=== PATIENT | male | born 1990 | race American Indian/Alaskan Native ===

== ENCOUNTER 2018-01-02 02:29 | Emergency (ER) | payer SELFPAY ==
[2018-01-02 04:15] LABS: Basophils % (Auto) 0.3 % (0.0-1.8); Eosinophils % (Auto) 0.2 % (0.0-4.3); Hematocrit 39.3 % (35.5-45.6); Hemoglobin 13.7 gm/dl (11.8-15.2); Mean Corpuscular HGB Conc 35 % (32-34); Mean Corpuscular Hemoglobin 30 pg (28-32); Mean Corpuscular Volume 85 fl (84-94); Monocytes # (Auto) 0.8 K/mm3 (0.0-0.8); Monocytes % (Auto) 7.8 % (0.0-7.3); Platelet Count 193 K/mm3 (140-440); Red Blood Count 4.64 M/mm3 (3.65-5.03); Red Cell Distribution Width 13.7 % (13.2-15.2)
[2018-01-02 04:17] LABS: BUN/Creatinine Ratio 15; Blood Urea Nitrogen 21 mg/dL (9-20); Calcium 8.8 mg/dL (8.4-10.2); Hemolysis Index 8
[2018-01-02 05:52] LABS: Hyaline Casts,Urine 1 /LPF; Mucus,Urine 1+ /HPF
[2018-01-02 05:53] LABS: Benzodiazepines Screen,Urine PRESUMPTIVE NEGATIVE; Methadone Screen,Urine PRESUMPTIVE NEGATIVE; Opiate Screen,Urine PRESUMPTIVE NEGATIVE
[2018-01-02 05:59] LABS: Bilirubin,Urine NEG (Negative); Blood,Urine NEG (Negative); Color,Urine Yellow (Yellow); Urobilinogen,Urine < 2.0 mg/dL (<2.0)
[2018-01-02 06:08] LABS: Amphetamine Screen,Urine PRESUMPTIVE POSITIVE; Cannabinoid Screen,Urine PRESUMPTIVE POSITIVE; Cocaine Screen,Urine PRESUMPTIVE POSITIVE
[2018-01-02] MEDS ORDERED: BENADRYL PO ONE (09:47)
--- NOTE | 2018-01-02 10:17 | Emergency Department Report ---
ED General Adult HPI - General Chief complaint: Psych Stated complaint: BUDS IN EAR Time Seen by Provider: 01/02/18 09:47 Source: patient Mode of arrival: Ambulatory Limitations: No Limitations - History of Present Illness Initial comments: Patient feels that for the past week he's been bitten by insects. He is concerned that he has scabies. Patient has been taking his skin. He is concerned that he could have scabies. Denies SI, HI, AVH. Severity scale (0 -10): 0 - Related Data Previous Rx's Medication Instructions Recorded Last Taken Type Doxycycline [Vibramycin CAP] 100 mg PO Q12HR #14 capsule 07/09/16 Unknown Rx Hydroxyzine HCl [hydrOXYzine] 50 mg PO Q6HR #20 tablet 01/02/18 Unknown Rx Skin Emollient [Aquaphor] 1 gm TP BID #1 tube 01/02/18 Unknown Rx Allergies Allergy/AdvReac Type Severity Reaction Status Date / Time No Known Allergies Allergy Unverified 07/09/16 08:50 ED Review of Systems ROS: Stated complaint: BUDS IN EAR Other details as noted in HPI Constitutional: denies: chills, fever Eyes: denies: eye pain, eye discharge, vision change ENT: denies: ear pain, throat pain Respiratory: denies: cough, shortness of breath, wheezing Cardiovascular: denies: chest pain, palpitations Endocrine: no symptoms reported Gastrointestinal: denies: abdominal pain, nausea, diarrhea Genitourinary: denies: urgency, dysuria Musculoskeletal: denies: back pain, joint swelling, arthralgia Skin: rash. denies: lesions Neurological: denies: headache, weakness, paresthesias Psychiatric: denies: anxiety, depression, auditory hallucinations, visual hallucinations, homicidal thoughts, suicidal thoughts Hematological/Lymphatic: denies: easy bleeding, easy bruising ED Past Medical Hx - Past Medical History Previous Medical History?: No - Social History Smoking Status: Current Every Day Smoker Substance Use Type: Alcohol, Marijuana - Medications Home Medications: Home Medications Medication Instructions Recorded Confirmed Last Taken Type Doxycycline [Vibramycin CAP] 100 mg PO Q12HR #14 capsule 07/09/16 Unknown Rx Hydroxyzine HCl [hydrOXYzine] 50 mg PO Q6HR #20 tablet 01/02/18 Unknown Rx Skin Emollient [Aquaphor] 1 gm TP BID #1 tube 01/02/18 Unknown Rx ED Physical Exam - General Limitations: No Limitations General appearance: alert, in no apparent distress - Head Head exam: Present: atraumatic, normocephalic - Eye Eye exam: Present: normal appearance - ENT ENT exam: Present: mucous membranes moist - Neck Neck exam: Present: normal inspection - Respiratory Respiratory exam: Present: normal lung sounds bilaterally. Absent: respiratory distress - Cardiovascular Cardiovascular Exam: Present: regular rate, normal rhythm. Absent: systolic murmur, diastolic murmur, rubs, gallop - GI/Abdominal GI/Abdominal exam: Present: soft, normal bowel sounds - Rectal Rectal exam: Present: deferred - exam: Present: normal inspection, circumcision, other (left inguinal crease with skin breakdown, no evidence of super infection) - Extremities Exam Extremities exam: Present: normal inspection - Back Exam Back exam: Present: normal inspection - Neurological Exam Neurological exam: Present: alert, oriented X3 - Psychiatric Psychiatric exam: Present: normal affect, normal mood - Skin Skin exam: Present: warm, dry, normal color, other (has multiple excoriations all over his body. Nothing in the web spaces of his hands/feet. Pt has been picking his skin.). Absent: rash ED Course Vital Signs 01/02/18 01/02/18 01/02/18 03:17 03:37 06:48 Temperature 98.1 F 98.1 F Pulse Rate 102 H 89 77 Respiratory 18 18 Rate Blood Pressure 130/78 130/78 Blood Pressure 132/70 [Left] O2 Sat by Pulse 94 95 Oximetry 01/02/18 07:30 Temperature 98.4 F Pulse Rate 75 Respiratory 16 Rate Blood Pressure Blood Pressure 113/73 [Left] O2 Sat by Pulse 98 Oximetry ED Medical Decision Making - Lab Data Result diagrams: 01/02/18 03:46 01/02/18 03:46 - Medical Decision Making 27-year-old malewith past medical history of present the ER with concern for bug bites. No evidence of scabies on exam. I'm concerned patient could have bedbugs. No evidence of bugs in the room. Patient does have multiple lesions from excoriations. He also has skin breakdown in his left groin. He's been given a barrier cream for the left groin. I have instructed the patient to start taking Atarax for the itching. Urinalysis shows evidence of polysubstance abuse. Likely presentation related to drug use. Patient has been encouraged to stop taking street drugs see that will also help his symptoms. No indication for emergent psychiatric eval at this point time. Clear for discharge. - Differential Diagnosis polysubstance abuse, contact dermatitis, hives, suicidal ideation, psychosi Critical care attestation.: If time is entered above; I have spent that time in minutes in the direct care of this critically ill patient, excluding procedure time. ED Disposition Clinical Impression: Itching, Drug abuse Disposition: DC-01 TO HOME OR SELFCARE Is pt being admited?: No Does the pt Need Aspirin: No Condition: Stable Instructions: Polysubstance Abuse (ED), Itchy Skin (ED) Additional Instructions: Stop using street drugs and it will help with your itching. Start taking your prescription to help with the itching. You can also purchase benadryl cream to help with this too. Prescriptions: Hydroxyzine HCl [hydrOXYzine] 50 mg PO Q6HR #20 tablet Skin Emollient [Aquaphor] 1 gm TP BID #1 tube Referrals: VERONICA MCKEON MD [Primary Care Provider] - 3-5 Days
[2018-01-02 11:01] VITALS: BP 139/84
== END 2018-01-02 10:50 | disposition home or self-care (01) ==
LOC: ED 02:29
DX: L29.9 Pruritus, unspecified (principal); F17.200 Nicotine dependence, unspecified, uncomplicated; F12.10 Cannabis abuse, uncomplicated; F19.10 Other psychoactive substance abuse, uncomplicated; Z79.899 Other long term (current) drug therapy
CPT/HCPCS: 36415; 80048; 80307; 81001; 85025; 99284; G0480; 80320

== ENCOUNTER 2018-01-19 21:57 | Emergency (ER) | payer SELFPAY ==
[2018-01-20] MEDS ORDERED: MOTRIN PO ONE (00:23)
[2018-01-20] MEDS ORDERED: DUONEB *Not for PRN Use IH ONE (01:06)
--- NOTE | 2018-01-20 01:15 | Emergency Department Report ---
ED ENT HPI - General Chief complaint: Dental/Oral Stated complaint: BUGS Time Seen by Provider: 01/20/18 00:23 Source: patient Mode of arrival: Ambulatory Limitations: No Limitations - History of Present Illness Initial comments: This is a 27-year-old male nontoxic, well nourished in appearance, no acute signs of distress presents to the ED with c/o of right upper toothache 2 weeks. Patient denies following up with a dentist. Patient stated that pain radiates from his job to his right side of head. Patient otherwise denies any head trauma. Patient describes toothache as aching level of 8 out of 10. Patient denies any facial swelling. Patient denies any numbness, tingling, fever, chills, headache, stiff neck, abdominal pain, chest pain, shortness of breath. Patient stated allergiers to Benadryl. Patient denies any PMH. MD complaint: tooth pain -: week(s) (2) Location: tooth # 1 - pain Severity: mild Severity scale (0 -10): 8 Quality: aching Consistency: constant Improves with: none Worsens with: none Context- Dental: history of dental caries, poor dental care Associated Symptoms: gum swelling, toothache. denies: fever, cough, pain with swallowing, sore throat, tinnitus, hearing loss, discharge from ear, rhinorrhea - Related Data Previous Rx's Medication Instructions Recorded Last Taken Type Doxycycline [Vibramycin CAP] 100 mg PO Q12HR #14 capsule 07/09/16 Unknown Rx Hydroxyzine HCl [hydrOXYzine] 50 mg PO Q6HR #20 tablet 01/02/18 Unknown Rx Skin Emollient [Aquaphor] 1 gm TP BID #1 tube 01/02/18 Unknown Rx Amoxicillin/K Clav Tab [Augmentin 1 tab PO Q12HR #20 tab 01/20/18 Unknown Rx 875 mg] Chlorhexidine Mouthwash [Peridex] 15 ml MM BID #1 bottle 01/20/18 Unknown Rx Ibuprofen [Motrin] 600 mg PO Q8H PRN #30 tablet 01/20/18 Unknown Rx Allergies Allergy/AdvReac Type Severity Reaction Status Date / Time No Known Allergies Allergy Verified 01/19/18 22:07 ED Dental HPI - General Chief complaint: Dental/Oral Stated complaint: BUGS Time Seen by Provider: 01/20/18 00:23 Source: patient Mode of arrival: Ambulatory Limitations: No Limitations - Related Data Previous Rx's Medication Instructions Recorded Last Taken Type Doxycycline [Vibramycin CAP] 100 mg PO Q12HR #14 capsule 07/09/16 Unknown Rx Hydroxyzine HCl [hydrOXYzine] 50 mg PO Q6HR #20 tablet 01/02/18 Unknown Rx Skin Emollient [Aquaphor] 1 gm TP BID #1 tube 01/02/18 Unknown Rx Amoxicillin/K Clav Tab [Augmentin 1 tab PO Q12HR #20 tab 01/20/18 Unknown Rx 875 mg] Chlorhexidine Mouthwash [Peridex] 15 ml MM BID #1 bottle 01/20/18 Unknown Rx Ibuprofen [Motrin] 600 mg PO Q8H PRN #30 tablet 01/20/18 Unknown Rx Allergies Allergy/AdvReac Type Severity Reaction Status Date / Time No Known Allergies Allergy Verified 01/19/18 22:07 ED Review of Systems ROS: Stated complaint: BUGS Other details as noted in HPI Constitutional: denies: chills, fever Eyes: denies: eye pain, eye discharge, vision change ENT: dental pain. denies: ear pain, throat pain Respiratory: denies: cough, shortness of breath, wheezing Cardiovascular: denies: chest pain, palpitations Endocrine: no symptoms reported Gastrointestinal: denies: abdominal pain, nausea, diarrhea Genitourinary: denies: urgency, dysuria Musculoskeletal: denies: back pain, joint swelling, arthralgia Skin: denies: rash, lesions Neurological: denies: headache, weakness, paresthesias Psychiatric: denies: anxiety, depression Hematological/Lymphatic: denies: easy bleeding, easy bruising ED Past Medical Hx - Past Medical History Previous Medical History?: No - Surgical History Past Surgical History?: No - Social History Smoking Status: Never Smoker Substance Use Type: None - Medications Home Medications: Home Medications Medication Instructions Recorded Confirmed Last Taken Type Doxycycline [Vibramycin CAP] 100 mg PO Q12HR #14 capsule 07/09/16 Unknown Rx Hydroxyzine HCl [hydrOXYzine] 50 mg PO Q6HR #20 tablet 01/02/18 Unknown Rx Skin Emollient [Aquaphor] 1 gm TP BID #1 tube 01/02/18 Unknown Rx Amoxicillin/K Clav Tab [Augmentin 1 tab PO Q12HR #20 tab 01/20/18 Unknown Rx 875 mg] Chlorhexidine Mouthwash [Peridex] 15 ml MM BID #1 bottle 01/20/18 Unknown Rx Ibuprofen [Motrin] 600 mg PO Q8H PRN #30 tablet 01/20/18 Unknown Rx ED Physical Exam - General Limitations: No Limitations General appearance: alert, in no apparent distress - Head Head exam: Present: atraumatic, normocephalic - Eye Eye exam: Present: normal appearance Pupils: Present: normal accommodation - ENT ENT exam: Present: mucous membranes moist, TM's normal bilaterally, normal external ear exam - Expanded ENT Exam Expanded Ear exam: Present: normal external inspection Mouth exam: Present: normal external inspection, tongue normal. Absent: drooling, trismus, muffled voice, tongue elevation, laceration Teeth exam: Present: dental caries, fractured tooth #, dental tenderness #, gingival enlargement, other (No facial swelling. ) 1 - Dental Tenderness, Other (gingivitis) Throat exam: Positive: normal inspection, other ([place] midline. No abscess noted. ). Negative: tonsillar erythema, tonsillomegaly, tonsillar exudate, R peritonsillar mass, L peritonsillar mass - Neck Neck exam: Present: normal inspection, full ROM. Absent: tenderness, meningismus, lymphadenopathy - Respiratory Respiratory exam: Present: normal lung sounds bilaterally. Absent: respiratory distress, wheezes, rales, rhonchi, stridor, chest wall tenderness, accessory muscle use, decreased breath sounds, prolonged expiratory - Cardiovascular Cardiovascular Exam: Present: regular rate, normal rhythm, normal heart sounds. Absent: irregular rhythm, systolic murmur, diastolic murmur, rubs, gallop - GI/Abdominal GI/Abdominal exam: Present: soft, normal bowel sounds - Rectal Rectal exam: Present: deferred - Extremities Exam Extremities exam: Present: normal inspection - Back Exam Back exam: Present: normal inspection - Neurological Exam Neurological exam: Present: alert, oriented X3 - Psychiatric Psychiatric exam: Present: normal affect, normal mood - Skin Skin exam: Present: warm, dry, intact, normal color. Absent: rash ED Course Vital Signs 01/19/18 22:08 Temperature 99.9 F H Pulse Rate 96 H Respiratory 16 Rate Blood Pressure 132/81 O2 Sat by Pulse 96 Oximetry - Reevaluation(s) Reevaluation #1: 01/20/18 01:13 Patient is speaking in full sentences with no signs of distress noted. Critical care attestation.: If time is entered above; I have spent that time in minutes in the direct care of this critically ill patient, excluding procedure time. ED Disposition Clinical Impression: Dental caries, Gingivitis Disposition: TO HOME OR SELFCARE Is pt being admited?: No Does the pt Need Aspirin: No Condition: Stable Instructions: Dental Caries (ED), Gingivitis (ED), Amoxicillin/Clavulanate Potassium (By mouth), Ibuprofen (By mouth) Additional Instructions: Follow-up with a dentist in 3-5 days or if symptoms worsen and continue return to emergency room as soon as possible. Prescriptions: Amoxicillin/K Clav Tab [Augmentin 875 mg] 1 tab PO Q12HR #20 tab Chlorhexidine Mouthwash [Peridex] 15 ml MM BID #1 bottle Ibuprofen [Motrin] 600 mg PO Q8H PRN #30 tablet PRN Reason: Pain Referrals: PRIMARY CARE, [Primary Care Provider] - 3-5 Days TIESHA HERMOSILLO MD [Staff Physician] - 3-5 Days [facility] [Outside] - 3-5 Days
[2018-01-20 04:27] VITALS: BP 130/81
== END 2018-01-20 01:22 | disposition home or self-care (01) ==
LOC: ED 21:57
DX: K05.10 Chronic gingivitis, plaque induced (principal)
CPT/HCPCS: 99282

== ENCOUNTER → 2018-11-06 23:10 | Emergency (ER) | payer SELFPAY | END | disposition left against medical advice (07) | LOC: ED 23:10 ==

== ENCOUNTER 2021-04-03 14:59 | Emergency (ER) | payer SELFPAY ==
[2021-04-03 16:29] VITALS: BP 126/80
--- NOTE | 2021-04-03 18:43 | Emergency Department Report ---
Chief Complaint: Earache Stated Complaint: HEAD FACE EARS CHEST - HPI History of Present Illness: 30-year-old male patient presents to the emergency department with complaints of a "blood infection" and requesting a "full body MRI." Patient has been in retirement for the last two years. States he was treated with "a bunch of antibiotics for bacterial infection" and "wants a scan to prove there's a parasite." - ROS Review of Systems: GENERAL: Negative for fever. CARDIOVASCULAR: Negative for chest pain. PULMONARY: Negative for shortness of breath. GASTROINTESTINAL: Negative for abdominal pain. MUSCULOSKELETAL: Negative for back pain. NEUROLOGICAL: Negative for headache. INTEGUMENTARY: Negative for rash. - Exam Vital Signs: Vital Signs 04/03/21 16:27 Temperature 98.1 F Pulse Rate 75 Respiratory 18 Rate Blood Pressure 126/80 [Right] O2 Sat by Pulse 99 Oximetry Physical Exam: General: Awake and alert. No acute distress. Head: Atraumatic, normocephalic. Eyes: EOMI. Pupils are equal and round. Normal sclera and conjunctiva. ENT: Oral mucosa is moist. Normal pharyngeal exam. Normal otoscopic exam Neck: Supple. No lymphadenopathy. Pulmonary: No respiratory distress. Clear to auscultation bilaterally. Cardiac: Regular rate and rhythm. Pulses are palpable and equal bilaterally. No lower extremity cyanosis or edema. Skin: Warm and dry. No rashes. Abdomen: Soft, non-tender, non-protuberant. No guarding, rigidity, or rebound. Bowel sounds are normal. No organomegaly or masses noted. Back: Normal alignment. No CVA tenderness. Extremities: Symmetrical. Full range of motion intact. Neurological: Alert and oriented, appropriately interactive, no focal deficits. Psych: Cooperative. Appropriate mood and affect. Speech is evenly metered. Thoug hts are logically construed. MSE screening note: Focused history and physical exam performed. Due to findings the following was ordered: ED Medical Decision Making - Medical Decision Making Patient presents to emergency department with vague chronic complaints, requesting antibiotics and MRI's. He is afebrile, hemodynamically stable, without clinical evidence to suggest bacterial infection. Patient asked how much it would cost to have a "full body MRI" performed. Attempted to explain to the patient that an emergent MRI is not necessary however he angrily walked out of the examination room in the middle of the consultation. BILLING/CODING: This patient encounter does not represent a certified medical emergency. ED Disposition for MSE Clinical Impression: Encounter for medical screening examination Disposition: ELOPED Is pt being admited?: No Does the pt Need Aspirin: No Condition: Undetermined Instructions: Medical Screening Exam Time of Disposition: 18:43
== END 2021-04-03 18:43 | disposition left against medical advice (07) ==
LOC: ED 14:59
DX: Z13.9 Encounter for screening, unspecified (principal)
CPT/HCPCS: 99281

== ENCOUNTER 2021-04-07 10:08 | Emergency (ER) | payer SELFPAY ==
--- NOTE | 2021-04-07 10:49 | XRay Report ---
CHEST PA AND LATERAL VIEWS INDICATION: Chest Pain. COMPARISON: None. FINDINGS: Support devices: None. Heart: Within normal limits. Lungs/Pleura: No acute pulmonary or pleural findings. IMPRESSION: 1. No acute findings. Signer Name: Ilia Hill MD Signed: 04/07/2021 10:45 AM Workstation Name: [id number]
[2021-04-07 11:07] LABS: Basophils % (Auto) 0.4 % (0.0-1.8); Eosinophils % (Auto) 0.3 % (0.0-4.3); Hematocrit 38.8 % (35.5-45.6); Hemoglobin 13.5 gm/dl (11.8-15.2); Lymphocytes # (Auto) 1.2 K/mm3 (1.2-5.4); Lymphocytes % (Auto) 16.5 % (13.4-35.0); Mean Corpuscular HGB Conc 35 % (32-34); Mean Corpuscular Volume 87 fl (84-94); Monocytes # (Auto) 0.7 K/mm3 (0.0-0.8); Monocytes % (Auto) 9.2 % (0.0-7.3); Platelet Count 153 K/mm3 (140-440); Red Blood Count 4.46 M/mm3 (3.65-5.03); Red Cell Distribution Width 13.7 % (13.2-15.2)
[2021-04-07 11:28] LABS: BUN/Creatinine Ratio 12; Blood Urea Nitrogen 11 mg/dL (9-20); Calcium 9.5 mg/dL (8.4-10.2); Hemolysis Index 5
--- NOTE | 2021-04-07 13:01 | Emergency Department Report ---
ED General Adult HPI - General Chief complaint: Chest Pain Stated complaint: CHEST PAIN Time Seen by Provider: 04/07/21 12:40 Source: patient Mode of arrival: Ambulatory Limitations: No Limitations - History of Present Illness Initial comments: The patient presents to the emergency department with a chief complaint of chest pain that started at 6 AM this morning. Patient states the pain was sharp in nature without radiation. Patient states he also got dizzy with the chest pain. Patient states the chest pain has significantly improved since the time of onset but is still present. Patient did not tells me he began to have chest pain after using ICE(illicit drug). Patient states the dizziness has resolved, he denies abdominal pain, or headache. -: Sudden Location: chest Radiation: non-radiation Severity scale (0 -10): 2 Quality: sharp Consistency: constant Improves with: none Worsens with: none Associated Symptoms: denies other symptoms Treatments Prior to Arrival: none - Related Data Previous Rx's Medication Instructions Recorded Last Taken Type DOXYCYCLINE Hyclate [Vibramycin 100 mg PO Q12HR #14 capsule 07/09/16 Unknown Rx CAP] Hydroxyzine HCl [hydrOXYzine] 50 mg PO Q6HR #20 tablet 01/02/18 Unknown Rx Skin Emollient [Aquaphor] 1 gm TP BID #1 tube 01/02/18 Unknown Rx Amoxicillin/K Clav Tab [Augmentin 1 tab PO Q12HR #20 tab 01/20/18 Unknown Rx 875 mg] Chlorhexidine Mouthwash [Peridex] 15 ml MM BID #1 bottle 01/20/18 Unknown Rx Ibuprofen [Motrin] 600 mg PO Q8H PRN #30 tablet 01/20/18 Unknown Rx Ibuprofen [Motrin] 800 mg PO Q8HR PRN #30 tablet 04/07/21 Unknown Rx Allergies Allergy/AdvReac Type Severity Reaction Status Date / Time No Known Allergies Allergy Verified 01/19/18 22:07 ED Review of Systems ROS: Stated complaint: CHEST PAIN Other details as noted in HPI Comment: All other systems reviewed and negative Constitutional: denies: chills, fever Eyes: denies: eye pain, eye discharge, vision change ENT: denies: ear pain, throat pain Respiratory: denies: cough, shortness of breath, wheezing Cardiovascular: chest pain. denies: palpitations Endocrine: no symptoms reported Gastrointestinal: denies: abdominal pain, nausea, diarrhea Genitourinary: denies: urgency, dysuria Musculoskeletal: denies: back pain, joint swelling, arthralgia Skin: denies: rash, lesions Neurological: denies: headache, weakness, paresthesias Psychiatric: denies: anxiety, depression Hematological/Lymphatic: denies: easy bleeding, easy bruising ED Past Medical Hx - Past Medical History Previous Medical History?: No - Surgical History Past Surgical History?: No - Social History Smoking Status: Never Smoker Substance Use Type: None - Medications Home Medications: Home Medications Medication Instructions Recorded Confirmed Last Taken Type DOXYCYCLINE Hyclate [Vibramycin 100 mg PO Q12HR #14 capsule 07/09/16 Unknown Rx CAP] Hydroxyzine HCl [hydrOXYzine] 50 mg PO Q6HR #20 tablet 01/02/18 Unknown Rx Skin Emollient [Aquaphor] 1 gm TP BID #1 tube 01/02/18 Unknown Rx Amoxicillin/K Clav Tab [Augmentin 1 tab PO Q12HR #20 tab 01/20/18 Unknown Rx 875 mg] Chlorhexidine Mouthwash [Peridex] 15 ml MM BID #1 bottle 01/20/18 Unknown Rx Ibuprofen [Motrin] 600 mg PO Q8H PRN #30 tablet 01/20/18 Unknown Rx Ibuprofen [Motrin] 800 mg PO Q8HR PRN #30 tablet 04/07/21 Unknown Rx ED Physical Exam - General Limitations: No Limitations General appearance: alert, in no apparent distress - Head Head exam: Present: atraumatic, normocephalic - Eye Eye exam: Present: normal appearance - ENT ENT exam: Present: mucous membranes moist - Neck Neck exam: Present: normal inspection - Respiratory Respiratory exam: Present: normal lung sounds bilaterally. Absent: respiratory distress - Cardiovascular Cardiovascular Exam: Present: regular rate, normal rhythm. Absent: systolic murmur, diastolic murmur, rubs, gallop - GI/Abdominal GI/Abdominal exam: Present: soft, normal bowel sounds. Absent: distended, tenderness - Rectal Rectal exam: Present: deferred - Extremities Exam Extremities exam: Present: normal inspection - Back Exam Back exam: Present: normal inspection - Neurological Exam Neurological exam: Present: alert, oriented X3, CN II-XII intact. Absent: motor sensory deficit - Psychiatric Psychiatric exam: Present: normal affect, normal mood - Skin Skin exam: Present: warm, dry, intact, normal color. Absent: rash ED Course Vital Signs 04/07/21 10:28 Temperature 98.6 F Pulse Rate 79 Respiratory 16 Rate Blood Pressure 145/93 [Left] ED Medical Decision Making - Lab Data Result diagrams: 04/07/21 10:41 04/07/21 10:41 Lab Results 04/07/21 04/07/21 Range/Units 10:41 10:41 WBC 7.5 (4.5-11.0) K/mm3 RBC 4.46 (3.65-5.03) M/mm3 Hgb 13.5 (11.8-15.2) gm/dl Hct 38.8 (35.5-45.6) % MCV 87 (84-94) fl MCH 30 (28-32) pg MCHC 35 H (32-34) % RDW 13.7 (13.2-15.2) % Plt Count 153 (140-440) K/mm3 Lymph % (Auto) 16.5 (13.4-35.0) % [place] % (Auto) 9.2 H (0.0-7.3) % Eos % (Auto) 0.3 (0.0-4.3) % Baso % (Auto) 0.4 (0.0-1.8) % Lymph # (Auto) 1.2 (1.2-5.4) K/mm3 [place] # (Auto) 0.7 (0.0-0.8) K/mm3 Eos # (Auto) 0.0 (0.0-0.4) K/mm3 Baso # (Auto) 0.0 (0.0-0.1) K/mm3 Seg Neutrophils % 73.6 H (40.0-70.0) % Seg Neutrophils # 5.5 (1.8-7.7) K/mm3 Sodium 140 (137-145) mmol/L Potassium 3.6 (3.6-5.0) mmol/L Chloride 99.0 (98-107) mmol/L Carbon Dioxide 25 (22-30) mmol/L Anion Gap 20 mmol/L BUN 11 (9-20) mg/dL Creatinine 0.9 (0.8-1.3) mg/dL Estimated GFR > 60 ml/min BUN/Creatinine Ratio 12 % Glucose 84 (75-100) mg/dL Calcium 9.5 (8.4-10.2) mg/dL Troponin T < 0.010 (0.00-0.029) ng/mL - EKG Data -: EKG Interpreted by Me EKG shows normal: sinus rhythm Rate: tachycardia - Radiology Data Radiology results: report reviewed - Medical Decision Making Discussed results with patient Also discussed importance of not using illicit drugs Critical care attestation.: If time is entered above; I have spent that time in minutes in the direct care of this critically ill patient, excluding procedure time. ED Disposition Clinical Impression: Nonspecific chest pain Disposition: DC- TO HOME OR SELFCARE Is pt being admited?: No Does the pt Need Aspirin: No Condition: Stable Instructions: Nonspecific Chest Pain, Adult Additional Instructions: return if worse Referrals: ROSALIO MAYERS MD [Staff Physician] - 3-5 Days Time of Disposition: 12:59 Heart Score - HEART Score History: Slightly suspicious EKG: Normal Age: < 45 Risk factors: No known risk factors Troponin: < normal limit HEART Score: 0 - EKG Read Time Time EKG Completed: 00:00 EKG Read Time: 00:00 - Critical Actions Critical Actions: 0-3 pts:0.9-1.7%risk of adverse cardiac event.Candidate for discharge
[2021-04-07 13:06] VITALS: BP 150/97
== END 2021-04-07 13:29 | disposition home or self-care (01) ==
LOC: ED 10:08
DX: R07.89 Other chest pain (principal); R42 Dizziness and giddiness; Z79.899 Other long term (current) drug therapy
CPT/HCPCS: 36415; 71046; 80048; 84484; 85025; 93005; 99283

== ENCOUNTER 2021-04-11 22:19 | Emergency (ER) | payer SELFPAY | END 2021-04-11 23:00 | disposition left against medical advice (07) | LOC: ED 22:19 | DX: R07.9 Chest pain, unspecified (principal); Z53.21 Procedure and treatment not carried out due to patient leaving prior to being seen by health care provider ==

== ENCOUNTER 2021-04-12 16:42 | Emergency (ER) | payer SELFPAY | END 2021-04-12 17:30 | disposition left against medical advice (07) | LOC: ED 16:42 | DX: R55 Syncope and collapse (principal); Z53.21 Procedure and treatment not carried out due to patient leaving prior to being seen by health care provider ==

== ENCOUNTER 2021-04-13 01:35 | Emergency (ER) | payer SELFPAY ==
[2021-04-13 03:59] VITALS: BP 106/76
== END 2021-04-13 05:30 | disposition left against medical advice (07) ==
LOC: ED 01:35
DX: B99.9 Unspecified infectious disease (principal); Z53.21 Procedure and treatment not carried out due to patient leaving prior to being seen by health care provider

== ENCOUNTER 2021-04-18 01:50 | Emergency (ER) | payer SELFPAY ==
[2021-04-18] MEDS ORDERED: ACETAMINOPHEN 325 MG TAB PO ONE (10:13)
--- NOTE | 2021-04-18 10:47 | XRay Report ---
CHEST 2 VIEWS INDICATION / CLINICAL INFORMATION: chest pain. COMPARISON: 04/07/2021 FINDINGS: SUPPORT DEVICES: None. HEART / MEDIASTINUM: No significant abnormality. LUNGS / PLEURA: No significant pulmonary or pleural abnormality. No pneumothorax. ADDITIONAL FINDINGS: No significant additional findings. IMPRESSION: 1. No acute findings. No interval change. Signer Name: Rebecca Yin MD Signed: 04/18/2021 10:42 AM Workstation Name: [id number]
[2021-04-18 11:02] LABS: Basophils % (Auto) 0.4 % (0.0-1.8); Eosinophils % (Auto) 0.3 % (0.0-4.3); Hematocrit 40.1 % (35.5-45.6); Hemoglobin 13.8 gm/dl (11.8-15.2); Lymphocytes # (Auto) 1.2 K/mm3 (1.2-5.4); Lymphocytes % (Auto) 18.5 % (13.4-35.0); Mean Corpuscular HGB Conc 35 % (32-34); Mean Corpuscular Volume 87 fl (84-94); Monocytes # (Auto) 0.4 K/mm3 (0.0-0.8); Monocytes % (Auto) 6.5 % (0.0-7.3); Platelet Count 207 K/mm3 (140-440); Red Blood Count 4.61 M/mm3 (3.65-5.03); Red Cell Distribution Width 14.1 % (13.2-15.2)
[2021-04-18 11:12] LABS: Alanine Aminotransferase 149 units/L (7-56); Blood Urea Nitrogen 8 mg/dL (9-20); Calcium 10.2 mg/dL (8.4-10.2); Hemolysis Index 3
[2021-04-18 11:17] LABS: BUN/Creatinine Ratio 11
--- NOTE | 2021-04-18 11:48 | Emergency Department Report ---
ED General Adult HPI - General Chief complaint: Anxiety Stated complaint: CHEST PAIN Time Seen by Provider: 04/18/21 09:53 Source: patient Mode of arrival: Ambulatory Limitations: No Limitations - History of Present Illness Initial comments: 30-year-old -Pak[place] male patient with a history of bipolar and schizophrenia presents with complaints of anxiety and chest pain starting last night. He states his symptoms began after he used meth. He denies any SI/HI or hallucinations. He reports feeling woozy and admits to a mild headache that he rates as he was 4/10 in severity. He denies any nausea/vomiting, abdominal pain, vision changes, difficulty with speech/ambulation, or head trauma. Patient reports he has not been taking his Wellbutrin for the past month and is not currently following with a PCP or psychiatrist Severity scale (0 -10): 10 - Related Data Previous Rx's Medication Instructions Recorded Last Taken Type DOXYCYCLINE Hyclate [Vibramycin 100 mg PO Q12HR #14 capsule 07/09/16 Unknown Rx CAP] Hydroxyzine HCl [hydrOXYzine] 50 mg PO Q6HR #20 tablet 01/02/18 Unknown Rx Skin Emollient [Aquaphor] 1 gm TP BID #1 tube 01/02/18 Unknown Rx Amoxicillin/K Clav Tab [Augmentin 1 tab PO Q12HR #20 tab 01/20/18 Unknown Rx 875 mg] Chlorhexidine Mouthwash [Peridex] 15 ml MM BID #1 bottle 01/20/18 Unknown Rx Ibuprofen [Motrin] 600 mg PO Q8H PRN #30 tablet 01/20/18 Unknown Rx Ibuprofen [Motrin] 800 mg PO Q8HR PRN #30 tablet 04/07/21 Unknown Rx buPROPion HCl [Wellbutrin Sr] 200 mg PO BID 30 Days #60 04/18/21 Unknown Rx tab.er.12h Allergies Allergy/AdvReac Type Severity Reaction Status Date / Time No Known Allergies Allergy Verified 04/13/21 03:52 ED Review of Systems ROS: Stated complaint: CHEST PAIN Other details as noted in HPI Constitutional: denies: chills, diaphoresis, fever, malaise, weakness Respiratory: denies: cough, shortness of breath Cardiovascular: chest pain Gastrointestinal: denies: abdominal pain, nausea, vomiting Neurological: denies: headache ED Past Medical Hx - Past Medical History Previous Medical History?: Yes Hx Pulmonary Embolism: Yes (Bipolar disoder, depression) - Surgical History Past Surgical History?: No - Social History Smoking Status: Current Every Day Smoker Substance Use Type: Marijuana - Medications Home Medications: Home Medications Medication Instructions Recorded Confirmed Last Taken Type DOXYCYCLINE Hyclate [Vibramycin 100 mg PO Q12HR #14 capsule 07/09/16 Unknown Rx CAP] Hydroxyzine HCl [hydrOXYzine] 50 mg PO Q6HR #20 tablet 01/02/18 Unknown Rx Skin Emollient [Aquaphor] 1 gm TP BID #1 tube 01/02/18 Unknown Rx Amoxicillin/K Clav Tab [Augmentin 1 tab PO Q12HR #20 tab 01/20/18 Unknown Rx 875 mg] Chlorhexidine Mouthwash [Peridex] 15 ml MM BID #1 bottle 01/20/18 Unknown Rx Ibuprofen [Motrin] 600 mg PO Q8H PRN #30 tablet 01/20/18 Unknown Rx Ibuprofen [Motrin] 800 mg PO Q8HR PRN #30 tablet 04/07/21 Unknown Rx buPROPion HCl [Wellbutrin Sr] 200 mg PO BID 30 Days #60 04/18/21 Unknown Rx tab.er.12h ED Physical Exam - General Limitations: No Limitations General appearance: alert, in no apparent distress - Head Head exam: Present: atraumatic, normocephalic - Eye Eye exam: Present: normal appearance. Absent: scleral icterus - Respiratory Respiratory exam: Present: normal lung sounds bilaterally. Absent: respiratory distress - Cardiovascular Cardiovascular Exam: Present: regular rate - Neurological Exam Neurological exam: Present: alert, oriented X3, normal gait - Psychiatric Psychiatric exam: Present: normal affect, normal mood. Absent: depressed, agitated, anxious, flat affect, homicidal ideation, suicidal ideation - Skin Skin exam: Present: warm, dry, intact, normal color. Absent: rash, cyanosis, diaphoretic ED Course Vital Signs 04/18/21 04/18/21 03:03 12:54 Temperature 98 F Pulse Rate 90 78 Respiratory 19 16 Rate Blood Pressure 143/80 128/86 [Right] O2 Sat by Pulse 100 95 Oximetry ED Medical Decision Making - Lab Data Result diagrams: 04/18/21 10:36 04/18/21 10:36 Lab Results 04/18/21 04/18/21 04/18/21 Range/Units 10:36 10:36 11:51 WBC 6.2 (4.5-11.0) K/mm3 RBC 4.61 (3.65-5.03) M/mm3 Hgb 13.8 (11.8-15.2) gm/dl Hct 40.1 (35.5-45.6) % MCV 87 (84-94) fl MCH 30 (28-32) pg MCHC 35 H (32-34) % RDW 14.1 (13.2-15.2) % Plt Count 207 (140-440) K/mm3 Lymph % (Auto) 18.5 (13.4-35.0) % [place] % (Auto) 6.5 (0.0-7.3) % Eos % (Auto) 0.3 (0.0-4.3) % Baso % (Auto) 0.4 (0.0-1.8) % Lymph # (Auto) 1.2 (1.2-5.4) K/mm3 [place] # (Auto) 0.4 (0.0-0.8) K/mm3 Eos # (Auto) 0.0 (0.0-0.4) K/mm3 Baso # (Auto) 0.0 (0.0-0.1) K/mm3 Seg Neutrophils % 74.3 H (40.0-70.0) % Seg Neutrophils # 4.6 (1.8-7.7) K/mm3 Sodium 137 (137-145) mmol/L Potassium 4.1 (3.6-5.0) mmol/L Chloride 98.0 (98-107) mmol/L Carbon Dioxide 29 (22-30) mmol/L Anion Gap 14 mmol/L BUN 8 L (9-20) mg/dL Creatinine 0.7 L (0.8-1.3) mg/dL Estimated GFR > 60 ml/min BUN/Creatinine Ratio 11 % Glucose 97 (75-100) mg/dL Calcium 10.2 (8.4-10.2) mg/dL Total Bilirubin 0.50 (0.1-1.2) mg/dL AST 44 H (5-40) units/L ALT 149 H (7-56) units/L Alkaline Phosphatase 99 (35-129) units/L Troponin T < 0.010 (0.00-0.029) ng/mL Total Protein 7.3 (6.3-8.2) g/dL Albumin 5.0 (3.9-5) g/dL Albumin/Globulin Ratio 2.2 % Urine Color Colorless (Yellow) Urine Turbidity Clear (Clear) Urine pH 7.0 (5.0-7.0) Ur Specific [place] 1.001 L (1.003-1.030) Urine Protein <15 mg/dl (Negative) mg/dL Urine Glucose (UA) Neg (Negative) mg/dL Urine Ketones Neg (Negative) mg/dL Urine Blood Neg (Negative) Urine Nitrite Neg (Negative) Urine Bilirubin Neg (Negative) Urine Urobilinogen < 2.0 (<2.0) mg/dL Ur Leukocyte Esterase Neg (Negative) Urine WBC (Auto) < 1.0 (0.0-6.0) /HPF Urine RBC (Auto) < 1.0 (0.0-6.0) /HPF U Epithel Cells (Auto) < 1.0 (0-13.0) /HPF Urine Opiates Screen Urine Methadone Screen Ur Barbiturates Screen Ur Phencyclidine Scrn Ur Amphetamines Screen U Benzodiazepines Scrn U Marijuana (THC) Screen 04/18/21 Range/Units 11:51 WBC (4.5-11.0) K/mm3 RBC (3.65-5.03) M/mm3 Hgb (11.8-15.2) gm/dl Hct (35.5-45.6) % MCV (84-94) fl MCH (28-32) pg MCHC (32-34) % RDW (13.2-15.2) % Plt Count (140-440) K/mm3 Lymph % (Auto) (13.4-35.0) % [place] % (Auto) (0.0-7.3) % Eos % (Auto) (0.0-4.3) % Baso % (Auto) (0.0-1.8) % Lymph # (Auto) (1.2-5.4) K/mm3 [place] # (Auto) (0.0-0.8) K/mm3 Eos # (Auto) (0.0-0.4) K/mm3 Baso # (Auto) (0.0-0.1) K/mm3 Seg Neutrophils % (40.0-70.0) % Seg Neutrophils # (1.8-7.7) K/mm3 Sodium (137-145) mmol/L Potassium (3.6-5.0) mmol/L Chloride (98-107) mmol/L Carbon Dioxide (22-30) mmol/L Anion Gap mmol/L BUN (9-20) mg/dL Creatinine (0.8-1.3) mg/dL Estimated GFR ml/min BUN/Creatinine Ratio % Glucose (75-100) mg/dL Calcium (8.4-10.2) mg/dL Total Bilirubin (0.1-1.2) mg/dL AST (5-40) units/L ALT (7-56) units/L Alkaline Phosphatase (35-129) units/L Troponin T (0.00-0.029) ng/mL Total Protein (6.3-8.2) g/dL Albumin (3.9-5) g/dL Albumin/Globulin Ratio % Urine Color (Yellow) Urine Turbidity (Clear) Urine pH (5.0-7.0) Ur Specific [place] (1.003-1.030) Urine Protein (Negative) mg/dL Urine Glucose (UA) (Negative) mg/dL Urine Ketones (Negative) mg/dL Urine Blood (Negative) Urine Nitrite (Negative) Urine Bilirubin (Negative) Urine Urobilinogen (<2.0) mg/dL Ur Leukocyte Esterase (Negative) Urine WBC (Auto) (0.0-6.0) /HPF Urine RBC (Auto) (0.0-6.0) /HPF U Epithel Cells (Auto) (0-13.0) /HPF Urine Opiates Screen Negative Urine Methadone Screen Negative Ur Barbiturates Screen Negative Ur Phencyclidine Scrn Negative Ur Amphetamines Screen Negative U Benzodiazepines Scrn Negative U Marijuana (THC) Screen Negative - Radiology Data Radiology results: report reviewed CHEST 2 VIEWS INDICATION / CLINICAL INFORMATION: chest pain. COMPARISON: 04/07/2021 FINDINGS: SUPPORT DEVICES: None. HEART / MEDIASTINUM: No significant abnormality. LUNGS / PLEURA: No significant pulmonary or pleural abnormality. No pneumothorax. ADDITIONAL FINDINGS: No significant additional findings. IMPRESSION: 1. No acute findings. No interval change. - Medical Decision Making 30-year-old -Pak[place] male patient with a history of bipolar and schizophrenia presents with complaints of anxiety and chest pain starting last night. He states his symptoms began after he used meth. He denies any SI/HI or hallucinations. He reports feeling woozy and admits to a mild headache that he rates as he was 4/10 in severity. He denies any nausea/vomiting, abdominal pain, vision changes, difficulty with speech/ambulation, or head trauma. Patient reports he has not been taking his Wellbutrin for the past month and is not currently following with a PCP or psychiatrist Drug screen is positive for cocaine. CBC is within normal limits. CMP shows mildly elevated liver enzymes, however patient denies abdominal pain, vomiting, history of liver disease, and no jaundice/icterus is noted on exam. Recommend patient follows up with PCP for further evaluation of liver enzymes. His vitals remain normal, he is well-appearing, he is stable for discharge home. Strict return precautions were discussed in detail patient verbalized understanding. Critical care attestation.: If time is entered above; I have spent that time in minutes in the direct care of this critically ill patient, excluding procedure time. ED Disposition Clinical Impression: Abnormal liver enzymes, Methamphetamine abuse Disposition: TO HOME OR SELFCARE Is pt being admited?: No Condition: Stable Instructions: Liver Function Tests Prescriptions: buPROPion HCl [Wellbutrin Sr] 200 mg PO BID 30 Days #60 tab.er.12h Referrals: DRE ISSA MD [Primary Care Provider] - 2-3 Days
[2021-04-18 12:18] LABS: Bilirubin,Urine NEG (Negative); Blood,Urine NEG (Negative); Color,Urine Colorless (Yellow); Protein,Urine <15 mg/dL mg/dL (Negative); Urobilinogen,Urine < 2.0 mg/dL (<2.0); WBC,Urine < 1.0 /HPF (0.0-6.0)
[2021-04-18 12:25] LABS: RBC,Urine < 1.0 /HPF (0.0-6.0)
[2021-04-18 12:27] LABS: Amphetamine Screen,Urine Negative; Benzodiazepines Screen,Urine Negative; Cannabinoid Screen,Urine Negative; Methadone Screen,Urine Negative; Opiate Screen,Urine Negative
[2021-04-18] MEDS ORDERED: diphenhydrAMINE 25 MG/10 ML ORAL LIQUID PO ONE (12:46)
[2021-04-18] MEDS ORDERED: HYDROcodone/ACETAMINOPHEN 5-325 MG TAB PO ONE (12:53)
[2021-04-18] MEDS ORDERED: IBUPROFEN 800 MG TAB PO STA (12:53)
[2021-04-18] MEDS ORDERED: TETANUS,DIPH,PERTUSS(ACELL) VACCINE 0.5 ML SYRINGE IM ONE (12:54)
[2021-04-18] MEDS ORDERED: LIDOCAINE (1%) 10 MG/1 ML VIAL 20 ML MDV INFILTRATI ONE (12:54)
[2021-04-18 12:55] VITALS: BP 128/86
[2021-04-18 13:01] LABS: Cocaine Screen,Urine Positive
--- NOTE | 2021-04-20 10:38 | Electrocardiograph Report ---
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
== END 2021-04-18 12:56 | disposition home or self-care (01) ==
LOC: ED 01:50
DX: R94.5 Abnormal results of liver function studies (principal); F15.10 Other stimulant abuse, uncomplicated; F31.9 Bipolar disorder, unspecified; F17.200 Nicotine dependence, unspecified, uncomplicated; F12.10 Cannabis abuse, uncomplicated
CPT/HCPCS: 36415; 71046; 80053; 80307; 81001; 84484; 85025; 93005; 99284

== ENCOUNTER 2021-04-24 07:50 | Emergency (ER) | payer SELFPAY ==
[2021-04-24 08:03] VITALS: BP 147/89
[2021-04-24] MEDS ORDERED: ASPIRIN 325 MG TAB PO ONE (08:09)
--- NOTE | 2021-04-24 08:53 | XRay Report ---
XR chest routine 2V INDICATION / CLINICAL INFORMATION: cp. COMPARISON: 04/18/2021 FINDINGS: SUPPORT DEVICES: None. HEART /PULMONARY VASCULATURE: No significant abnormality. LUNGS / PLEURA: No significant pulmonary or pleural abnormality. No pneumothorax. ADDITIONAL FINDINGS: No significant additional findings. IMPRESSION: 1. No acute findings. Signer Name: Atif Yoo MD Signed: 04/24/2021 8:49 AM Workstation Name: [id number]
--- NOTE | 2021-04-24 09:38 | Emergency Department Report ---
ED General Adult HPI - General Chief complaint: Chest Pain Stated complaint: CP/HEAD PAIN Time Seen by Provider: 04/24/21 08:46 Source: patient Mode of arrival: Ambulatory Limitations: No Limitations - History of Present Illness Initial comments: This is a pleasant 30-year-old male who presents to the emergency department the chief complaint of right-sided chest pain that has been ongoing for the past 4 to 5 days. He reports the pain is aggravated when he presses on his chest. He denies any injuries. He denies any pleuritic pain or shortness of breath. He has a past medical history of hypertension but is not currently on any medications. He denies any other prescription drugs, allergies to medications or any previous surgeries. He denies any recent immobilization, hospitalization or travel. He denies any lower extremity edema or pain. He does report he smokes marijuana but denies tobacco use, methamphetamines or cocaine or any other illicit drug use. He denies alcohol use recently. He denies any associated fevers, chills, night sweats, headache, dizziness, blurry vision, nausea, vomiting, diarrhea, shortness of breath, weakness or any other associated symptoms. He denies any known sick contacts. Severity scale (0 -10): 8 - Related Data Previous Rx's Medication Instructions Recorded Last Taken Type DOXYCYCLINE Hyclate [Vibramycin 100 mg PO Q12HR #14 capsule 07/09/16 Unknown Rx CAP] Hydroxyzine HCl [hydrOXYzine] 50 mg PO Q6HR #20 tablet 01/02/18 Unknown Rx Skin Emollient [Aquaphor] 1 gm TP BID #1 tube 01/02/18 Unknown Rx Amoxicillin/K Clav Tab [Augmentin 1 tab PO Q12HR #20 tab 01/20/18 Unknown Rx 875 mg] Chlorhexidine Mouthwash [Peridex] 15 ml MM BID #1 bottle 01/20/18 Unknown Rx Ibuprofen [Motrin] 600 mg PO Q8H PRN #30 tablet 01/20/18 Unknown Rx Ibuprofen [Motrin] 800 mg PO Q8HR PRN #30 tablet 04/07/21 Unknown Rx buPROPion HCl [Wellbutrin Sr] 200 mg PO BID 30 Days #60 04/18/21 Unknown Rx tab.er.12h Naproxen 500 mg PO BID #20 tablet 04/24/21 Unknown Rx Allergies Allergy/AdvReac Type Severity Reaction Status Date / Time No Known Allergies Allergy Verified 04/13/21 03:52 ED Review of Systems ROS: Stated complaint: CP/HEAD PAIN Other details as noted in HPI Comment: All other systems reviewed and negative Constitutional: denies: chills, fever Eyes: denies: eye pain, eye discharge, vision change ENT: denies: ear pain, throat pain Respiratory: denies: cough, shortness of breath, wheezing Cardiovascular: as per HPI, chest pain. denies: palpitations Endocrine: no symptoms reported Gastrointestinal: denies: abdominal pain, nausea, diarrhea Genitourinary: denies: urgency, dysuria Musculoskeletal: denies: back pain, joint swelling, arthralgia Skin: denies: rash, lesions Neurological: denies: headache, weakness, paresthesias Psychiatric: denies: anxiety, depression Hematological/Lymphatic: denies: easy bleeding, easy bruising ED Past Medical Hx - Past Medical History Previous Medical History?: Yes Hx Hypertension: Yes (Not taken since in prison 2 wks ago) Hx Pulmonary Embolism: Yes (Bipolar disoder, depression) - Surgical History Past Surgical History?: No - Social History Smoking Status: Current Every Day Smoker Substance Use Type: Marijuana - Medications Home Medications: Home Medications Medication Instructions Recorded Confirmed Last Taken Type DOXYCYCLINE Hyclate [Vibramycin 100 mg PO Q12HR #14 capsule 07/09/16 Unknown Rx CAP] Hydroxyzine HCl [hydrOXYzine] 50 mg PO Q6HR #20 tablet 01/02/18 Unknown Rx Skin Emollient [Aquaphor] 1 gm TP BID #1 tube 01/02/18 Unknown Rx Amoxicillin/K Clav Tab [Augmentin 1 tab PO Q12HR #20 tab 01/20/18 Unknown Rx 875 mg] Chlorhexidine Mouthwash [Peridex] 15 ml MM BID #1 bottle 01/20/18 Unknown Rx Ibuprofen [Motrin] 600 mg PO Q8H PRN #30 tablet 01/20/18 Unknown Rx Ibuprofen [Motrin] 800 mg PO Q8HR PRN #30 tablet 04/07/21 Unknown Rx buPROPion HCl [Wellbutrin Sr] 200 mg PO BID 30 Days #60 04/18/21 Unknown Rx tab.er.12h Naproxen 500 mg PO BID #20 tablet 04/24/21 Unknown Rx ED Physical Exam - General Limitations: No Limitations General appearance: alert, in no apparent distress - Head Head exam: Present: atraumatic, normocephalic - Eye Eye exam: Present: normal appearance, PERRL, EOMI Pupils: Present: normal accommodation - ENT ENT exam: Present: normal exam, normal orophraynx, mucous membranes moist - Neck Neck exam: Present: normal inspection, full ROM. Absent: tenderness, meningismus - Respiratory Respiratory exam: Present: normal lung sounds bilaterally, chest wall tenderness (Tenderness to the right side of the chest wall at the border of the lower sternum. No deformity.). Absent: respiratory distress, wheezes, rales, rhonchi, stridor - Cardiovascular Cardiovascular Exam: Present: regular rate, normal rhythm, normal heart sounds. Absent: systolic murmur, diastolic murmur, rubs, gallop - GI/Abdominal GI/Abdominal exam: Present: soft, normal bowel sounds. Absent: distended, tenderness, guarding, rebound, rigid - Rectal Rectal exam: Present: deferred - exam: Present: normal inspection - Extremities Exam Extremities exam: Present: normal inspection. Absent: calf tenderness (No posterior calf tenderness, negative Homans' sign bilaterally.) - Back Exam Back exam: Present: normal inspection, full ROM. Absent: tenderness, CVA tenderness (R), CVA tenderness (L) - Neurological Exam Neurological exam: Present: alert, oriented X3, CN II-XII intact, normal gait - Psychiatric Psychiatric exam: Present: normal affect, normal mood - Skin Skin exam: Present: warm, dry, intact, normal color. Absent: rash ED Course Vital Signs 04/24/21 08:01 Temperature 98.2 F Pulse Rate 75 Respiratory 18 Rate Blood Pressure 147/89 [Right] O2 Sat by Pulse 99 Oximetry - Reevaluation(s) Reevaluation #1: 04/24/21 09:37 Patient nontoxic in no acute distress. Overall relatively low risk for coronary artery disease. EKG was unremarkable. Chest x-ray showed no pneumothorax, signs of infiltrate or pneumonia, and no widening of the mediastinum. Patient had no tearing or ripping pain to the back, normal equal radial pulses bilaterally and my suspicion for an acute aortic dissection is low. Patient had a low risk by Wells criteria for PE and is PERC negative making this unlikely. ED Medical Decision Making - Lab Data Result diagrams: 04/24/21 08:47 04/24/21 08:47 Lab Results 04/24/21 04/24/21 Range/Units 08:47 08:47 WBC 6.6 (4.5-11.0) K/mm3 RBC 4.64 (3.65-5.03) M/mm3 Hgb 14.1 (11.8-15.2) gm/dl Hct 40.6 (35.5-45.6) % MCV 88 (84-94) fl MCH 30 (28-32) pg MCHC 35 H (32-34) % RDW 14.7 (13.2-15.2) % Plt Count 220 (140-440) K/mm3 Lymph % (Auto) 18.0 (13.4-35.0) % [place] % (Auto) 9.3 H (0.0-7.3) % Eos % (Auto) 0.6 (0.0-4.3) % Baso % (Auto) 0.3 (0.0-1.8) % Lymph # (Auto) 1.2 (1.2-5.4) K/mm3 [place] # (Auto) 0.6 (0.0-0.8) K/mm3 Eos # (Auto) 0.0 (0.0-0.4) K/mm3 Baso # (Auto) 0.0 (0.0-0.1) K/mm3 Seg Neutrophils % 71.8 H (40.0-70.0) % Seg Neutrophils # 4.8 (1.8-7.7) K/mm3 Sodium 139 (137-145) mmol/L Potassium 3.6 (3.6-5.0) mmol/L Chloride 98.6 (98-107) mmol/L Carbon Dioxide 29 (22-30) mmol/L Anion Gap 15 mmol/L BUN 9 (9-20) mg/dL Creatinine 0.9 (0.8-1.3) mg/dL Estimated GFR > 60 ml/min BUN/Creatinine Ratio 10 % Glucose 73 L (75-100) mg/dL Calcium 9.5 (8.4-10.2) mg/dL Total Bilirubin 0.60 (0.1-1.2) mg/dL AST 36 (5-40) units/L ALT 52 (7-56) units/L Alkaline Phosphatase 90 (35-129) units/L Troponin T < 0.010 (0.00-0.029) ng/mL Total Protein 7.4 (6.3-8.2) g/dL Albumin 4.7 (3.9-5) g/dL Albumin/Globulin Ratio 1.7 % - EKG Data When compared to previous EKG there are: previous EKG unavailable Interpretation: normal EKG, other (Normal sinus rhythm with a ventricular rate of 76, no acute ST or T wave abnormalities, no STEMI, normal axis, normal intervals.) - Radiology Data Radiology results: report reviewed, image reviewed Patient: EDD MILTON MR#: [id number] : 1990 Acct:[id number] Age/Sex: 30 / M ADM Date: 04/24/21 Loc: ED Attending Dr: Ordering Physician: Pennie Norwood MD Date of Service: 04/24/21 Procedure(s): XR chest routine 2V Accession Number(s): [id number] cc: Pennie Norwood MD Fluoro Time In Minutes: XR chest routine 2V INDICATION / CLINICAL INFORMATION: cp. COMPARISON: 04/18/2021 FINDINGS: SUPPORT DEVICES: None. HEART /PULMONARY VASCULATURE: No significant abnormality. LUNGS / PLEURA: No significant pulmonary or pleural abnormality. No pneumothorax. ADDITIONAL FINDINGS: No significant additional findings. IMPRESSION: 1. No acute findings. Signer Name: Solange Yoo MD Signed: 04/24/2021 8:49 AM Workstation Name: [id number] Transcribed By: JS Dictated By: SOLANGE YOO MD Electronically Authenticated By: SOLANGE YOO MD Signed Date/Time: 04/24/21 0849 - Medical Decision Making On reevaluation the patient's labs and x-ray were unremarkable. His troponin was negative and due to the fact that his pain has been ongoing for the past many days I did not think a second troponin is necessary at this time. Overall his heart score is low at a 1 only due to his history of hypertension although his blood pressure is normal right now and he is not on any medication. We did educate him about the importance of following up with cardiology and that the testing done today does not rule out unstable angina and may still be important to follow-up with cardiology for stress testing or dynamic testing as needed. He is PERC negative and a low risk by Wells criteria making PE unlikely. He had no widening of the mediastinum or tearing or ripping pain to the back with normal equal radial pulses making aortic dissection unlikely. His x-ray again was normal with no signs of pneumonia or pneumothorax. He had reproducible chest wall tenderness and a suspect this is likely the source of his pain. Recommended anti-inflammatories and follow-up with primary care and possibly cardiology. He was instructed to return to the ER immediately if he develops any change or worsening symptoms. He verbalized understanding these instructions all his questions were answered. - Differential Diagnosis ACS, PE, chest wall pain, pneumonia, pneumothorax, aortic dissection Critical care attestation.: If time is entered above; I have spent that time in minutes in the direct care of this critically ill patient, excluding procedure time. ED Disposition Clinical Impression: Acute nonspecific chest pain with low risk of coronary artery disease Disposition: DC- TO HOME OR SELFCARE Is pt being admited?: No Condition: Stable Instructions: Chest Pain (ED), Nonspecific Chest Pain, Adult Prescriptions: Naproxen 500 mg PO BID #20 tablet Referrals: PRIMARY CAREMD [Primary Care Provider] - 3-5 Days TIESHA LOCK MD [Staff Physician] - 3-5 Days TIANNA BELL MD [Staff Physician] - 3-5 Days Time of Disposition: 10:54
[2021-04-24 09:47] LABS: Basophils % (Auto) 0.3 % (0.0-1.8); Eosinophils % (Auto) 0.6 % (0.0-4.3); Hematocrit 40.6 % (35.5-45.6); Hemoglobin 14.1 gm/dl (11.8-15.2); Lymphocytes # (Auto) 1.2 K/mm3 (1.2-5.4); Mean Corpuscular HGB Conc 35 % (32-34); Mean Corpuscular Volume 88 fl (84-94); Monocytes # (Auto) 0.6 K/mm3 (0.0-0.8); Monocytes % (Auto) 9.3 % (0.0-7.3); Platelet Count 220 K/mm3 (140-440); Red Blood Count 4.64 M/mm3 (3.65-5.03); Red Cell Distribution Width 14.7 % (13.2-15.2)
[2021-04-24 10:12] LABS: Alanine Aminotransferase 52 units/L (7-56); Albumin 4.7 g/dL (3.9-5); BUN/Creatinine Ratio 10; Blood Urea Nitrogen 9 mg/dL (9-20); Calcium 9.5 mg/dL (8.4-10.2); Hemolysis Index 5
--- NOTE | 2021-04-24 13:06 | Electrocardiograph Report ---
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
== END 2021-04-24 11:03 | disposition home or self-care (01) ==
LOC: ED 07:50
DX: R07.89 Other chest pain (principal); F17.200 Nicotine dependence, unspecified, uncomplicated; F12.90 Cannabis use, unspecified, uncomplicated; F31.9 Bipolar disorder, unspecified; I10 Essential (primary) hypertension; Z79.899 Other long term (current) drug therapy
CPT/HCPCS: 36415; 71046; 80053; 84484; 85025; 93005

== ENCOUNTER 2021-04-28 11:27 | Emergency (ER) | payer SELFPAY | END 2021-04-28 13:00 | disposition left against medical advice (07) | LOC: ED 11:27 | DX: R07.9 Chest pain, unspecified (principal); Z53.21 Procedure and treatment not carried out due to patient leaving prior to being seen by health care provider ==

== ENCOUNTER 2021-05-02 20:27 | Emergency (ER) | payer SELFPAY ==
[2021-05-03 04:33] VITALS: BP 131/95
== END 2021-05-03 04:15 | disposition left against medical advice (07) ==
LOC: ED 20:27
DX: M54.9 Dorsalgia, unspecified (principal); Z53.21 Procedure and treatment not carried out due to patient leaving prior to being seen by health care provider

== ENCOUNTER 2021-05-04 01:44 | Emergency (ER) | payer SELFPAY | END 2021-05-04 02:50 | LOC: ED 01:44 ==

== ENCOUNTER 2021-05-04 05:11 | Emergency (ER) | payer SELFPAY | END 2021-05-04 06:40 | LOC: ED 05:11 ==

== ENCOUNTER 2021-05-04 07:32 | Emergency (ER) | payer SELFPAY ==
[2021-05-04 07:59] VITALS: BP 123/80
--- NOTE | 2021-05-04 12:17 | Emergency Department Report ---
- General Chief complaint: Back Pain/Injury Stated complaint: OTHER Time Seen by Provider: 05/04/21 12:11 Source: patient Mode of arrival: Ambulatory Limitations: No Limitations - History of Present Illness Initial comments: Chief complaint: I have had a cyst on my back for years HPI: This is a 30-year-old male with history of bipolar disorder and polysubstance abuse who presents with cyst on his back for several years. He desires antibiotic. Patient is been off of psychiatric medications since being released from incarceration 3 weeks ago. He lives with his mother. He denies auditory visual hallucinations. He denies suicidal homicidal ideation. He denies any pain. MD complaint: rash, abscess/boil -: Gradual, year(s) (Several years) Location: back Severity: mild Consistency: constant Improves with: none Worsens with: none Associated symptoms: denies other symptoms - Related Data Previous Rx's Medication Instructions Recorded Last Taken Type DOXYCYCLINE Hyclate [Vibramycin 100 mg PO Q12HR #14 capsule 07/09/16 Unknown Rx CAP] Hydroxyzine HCl [hydrOXYzine] 50 mg PO Q6HR #20 tablet 01/02/18 Unknown Rx Skin Emollient [Aquaphor] 1 gm TP BID #1 tube 01/02/18 Unknown Rx Amoxicillin/K Clav Tab [Augmentin 1 tab PO Q12HR #20 tab 01/20/18 Unknown Rx 875 mg] Chlorhexidine Mouthwash [Peridex] 15 ml MM BID #1 bottle 01/20/18 Unknown Rx Ibuprofen [Motrin] 600 mg PO Q8H PRN #30 tablet 01/20/18 Unknown Rx Ibuprofen [Motrin] 800 mg PO Q8HR PRN #30 tablet 04/07/21 Unknown Rx buPROPion HCl [Wellbutrin Sr] 200 mg PO BID 30 Days #60 04/18/21 Unknown Rx tab.er.12h Naproxen 500 mg PO BID #20 tablet 04/24/21 Unknown Rx Allergies Allergy/AdvReac Type Severity Reaction Status Date / Time No Known Allergies Allergy Verified 04/13/21 03:52 Abscess Boil HPI - HPI Chief Complaint: Back Pain/Injury Stated Complaint: OTHER Time Seen by Provider: 05/04/21 12:11 Home Medications: Previous Rx's Medication Instructions Recorded Last Taken Type DOXYCYCLINE Hyclate [Vibramycin 100 mg PO Q12HR #14 capsule 07/09/16 Unknown Rx CAP] Hydroxyzine HCl [hydrOXYzine] 50 mg PO Q6HR #20 tablet 01/02/18 Unknown Rx Skin Emollient [Aquaphor] 1 gm TP BID #1 tube 01/02/18 Unknown Rx Amoxicillin/K Clav Tab [Augmentin 1 tab PO Q12HR #20 tab 01/20/18 Unknown Rx 875 mg] Chlorhexidine Mouthwash [Peridex] 15 ml MM BID #1 bottle 01/20/18 Unknown Rx Ibuprofen [Motrin] 600 mg PO Q8H PRN #30 tablet 01/20/18 Unknown Rx Ibuprofen [Motrin] 800 mg PO Q8HR PRN #30 tablet 04/07/21 Unknown Rx buPROPion HCl [Wellbutrin Sr] 200 mg PO BID 30 Days #60 04/18/21 Unknown Rx tab.er.12h Naproxen 500 mg PO BID #20 tablet 04/24/21 Unknown Rx Allergies/Adverse Reactions: Allergies Allergy/AdvReac Type Severity Reaction Status Date / Time No Known Allergies Allergy Verified 04/13/21 03:52 ED Review of Systems ROS: Stated complaint: OTHER Other details as noted in HPI Comment: All other systems reviewed and negative Constitutional: denies: fever, malaise Respiratory: denies: cough, shortness of breath Cardiovascular: denies: chest pain Gastrointestinal: denies: abdominal pain, nausea, vomiting Skin: rash, lesions ED Past Medical Hx - Past Medical History Previous Medical History?: Yes Hx Hypertension: Yes (Not taken since in long term 2 wks ago) Hx Psychiatric Treatment: Yes (Bipolar depression) - Social History Smoking Status: Current Every Day Smoker Substance Use Type: Alcohol, Cocaine, Methamphetamines - Medications Home Medications: Home Medications Medication Instructions Recorded Confirmed Last Taken Type DOXYCYCLINE Hyclate [Vibramycin 100 mg PO Q12HR #14 capsule 07/09/16 Unknown Rx CAP] Hydroxyzine HCl [hydrOXYzine] 50 mg PO Q6HR #20 tablet 01/02/18 Unknown Rx Skin Emollient [Aquaphor] 1 gm TP BID #1 tube 01/02/18 Unknown Rx Amoxicillin/K Clav Tab [Augmentin 1 tab PO Q12HR #20 tab 01/20/18 Unknown Rx 875 mg] Chlorhexidine Mouthwash [Peridex] 15 ml MM BID #1 bottle 01/20/18 Unknown Rx Ibuprofen [Motrin] 600 mg PO Q8H PRN #30 tablet 01/20/18 Unknown Rx Ibuprofen [Motrin] 800 mg PO Q8HR PRN #30 tablet 04/07/21 Unknown Rx buPROPion HCl [Wellbutrin Sr] 200 mg PO BID 30 Days #60 04/18/21 Unknown Rx tab.er.12h Naproxen 500 mg PO BID #20 tablet 04/24/21 Unknown Rx ED Physical Exam - General Limitations: No Limitations General appearance: alert, in no apparent distress - Head Head exam: Present: atraumatic, normocephalic - Eye Eye exam: Present: normal appearance - ENT ENT exam: Present: mucous membranes moist - Neck Neck exam: Present: normal inspection, full ROM - Respiratory Respiratory exam: Present: normal lung sounds bilaterally. Absent: respiratory distress, wheezes, rales, rhonchi - Cardiovascular Cardiovascular Exam: Present: regular rate, normal rhythm, normal heart sounds. Absent: systolic murmur, diastolic murmur, rubs, gallop - GI/Abdominal GI/Abdominal exam: Present: soft, normal bowel sounds. Absent: distended, tenderness, guarding, rebound - Rectal Rectal exam: Present: deferred - Extremities Exam Extremities exam: Present: normal inspection - Back Exam Back exam: Present: normal inspection - Neurological Exam Neurological exam: Present: alert, oriented X3 - Psychiatric Psychiatric exam: Present: normal affect, normal mood - Skin Skin exam: Present: warm, dry, intact, normal color, other (2 cm cyst upper back, 4 cm lipoma right upper back) ED Course Vital Signs 05/04/21 07:57 Temperature 97.8 F Pulse Rate 91 H Respiratory 18 Rate Blood Pressure 123/80 [Right] O2 Sat by Pulse 96 Oximetry ED Medical Decision Making - Medical Decision Making 1. Cyst, lipoma present for several years: Patient desired to stay in the waiting room to sleep. He has been in the waiting room for over 48 hours. There is no acute infection involving this lipoma. No urgent need for intervention. Charge nurse informed me that patient tried to take 2 boxes of mass. 2. History of bipolar disorder and polysubstance abuse: Patient is lucid alert he denies suicidal homicidal ideation. Denies auditory visual hallucinations. Discharged to self-care. Charge nurse contacted police department for assistance to escort patient. Patient exhibited aggressive behavior toward charge nurse. Critical care attestation.: If time is entered above; I have spent that time in minutes in the direct care of this critically ill patient, excluding procedure time. ED Disposition Clinical Impression: Cyst, Lipoma, Bipolar disorder Disposition: HOME / SELF CARE / HOMELESS Is pt being admited?: No Does the pt Need Aspirin: No Condition: Stable Referrals: [facility] [Outside] - 3-5 Days ROSALIO MAYERS MD [Staff Physician] - 3-5 Days
== END 2021-05-04 12:15 | disposition home or self-care (01) ==
LOC: ED 07:32
DX: D17.9 Benign lipomatous neoplasm, unspecified (principal); F31.9 Bipolar disorder, unspecified; I10 Essential (primary) hypertension; F17.200 Nicotine dependence, unspecified, uncomplicated; F14.90 Cocaine use, unspecified, uncomplicated; F15.90 Other stimulant use, unspecified, uncomplicated; Z72.89 Other problems related to lifestyle; Z79.899 Other long term (current) drug therapy
CPT/HCPCS: 99281

== ENCOUNTER 2021-05-08 19:00 | Emergency (ER) | payer SELFPAY ==
--- NOTE | 2021-05-08 21:28 | Emergency Department Report ---
- General Chief Complaint: Animal Bite Stated Complaint: LT LEG BITE Time Seen by Provider: 05/08/21 21:21 Source: patient Mode of arrival: Ambulatory Limitations: No Limitations - History of Present Illness Initial Comments: 30-year-old [place] male presents emerge department complaining of wound to the left lower leg which he is coming from a bite of unknown type which he began to become red and tenderness with some mild pain no numbness or tingling. Ports no fever, chills, sweats reports no chest pain no pain or palpitations. Reports no hematuria no dysuria. Reports no known rashes. He has had to take any [id number]-[id number] medications to mitigate his symptoms. Reports no prior instances of similar issues. Reports no immunocompromising factors as well -: Gradual, days(s) (5) Extremity Location: Left: Lower Leg Place: home Patient Tetanus UTD: No Associated Symptoms: pain. denies: suspect foreign body present, unable to move injured part, weakness followed by dizziness, nausea/vomiting - Related Data Previous Rx's Medication Instructions Recorded Last Taken Type DOXYCYCLINE Hyclate [Vibramycin 100 mg PO Q12HR #14 capsule 07/09/16 Unknown Rx CAP] Hydroxyzine HCl [hydrOXYzine] 50 mg PO Q6HR #20 tablet 01/02/18 Unknown Rx Skin Emollient [Aquaphor] 1 gm TP BID #1 tube 01/02/18 Unknown Rx Amoxicillin/K Clav Tab [Augmentin 1 tab PO Q12HR #20 tab 01/20/18 Unknown Rx 875 mg] Chlorhexidine Mouthwash [Peridex] 15 ml MM BID #1 bottle 01/20/18 Unknown Rx Ibuprofen [Motrin] 600 mg PO Q8H PRN #30 tablet 01/20/18 Unknown Rx Ibuprofen [Motrin] 800 mg PO Q8HR PRN #30 tablet 04/07/21 Unknown Rx buPROPion HCl [Wellbutrin Sr] 200 mg PO BID 30 Days #60 04/18/21 Unknown Rx tab.er.12h Naproxen 500 mg PO BID #20 tablet 04/24/21 Unknown Rx Chlorhexidine Gluconate [Hibiclens] 10 ml TP BID #240 liquid 05/08/21 Unknown Rx Mupirocin [Bactroban 2%] 1 applic TP TID #1 tube 05/08/21 Unknown Rx cephALEXin [Keflex] 500 mg PO Q8HR #30 cap 05/08/21 Unknown Rx Allergies Allergy/AdvReac Type Severity Reaction Status Date / Time No Known Allergies Allergy Verified 04/13/21 03:52 ED Review of Systems ROS: Stated complaint: LT LEG BITE Other details as noted in HPI Comment: All other systems reviewed and negative ED Past Medical Hx - Past Medical History Previous Medical History?: Yes Hx Hypertension: Yes (Not taken since in senior care 2 wks ago) Hx Pulmonary Embolism: Yes (Bipolar disoder, depression) Hx Psychiatric Treatment: Yes (Bipolar depression) - Surgical History Past Surgical History?: No - Social History Smoking Status: Never Smoker Substance Use Type: None - Medications Home Medications: Home Medications Medication Instructions Recorded Confirmed Last Taken Type DOXYCYCLINE Hyclate [Vibramycin 100 mg PO Q12HR #14 capsule 07/09/16 Unknown Rx CAP] Hydroxyzine HCl [hydrOXYzine] 50 mg PO Q6HR #20 tablet 01/02/18 Unknown Rx Skin Emollient [Aquaphor] 1 gm TP BID #1 tube 01/02/18 Unknown Rx Amoxicillin/K Clav Tab [Augmentin 1 tab PO Q12HR #20 tab 01/20/18 Unknown Rx 875 mg] Chlorhexidine Mouthwash [Peridex] 15 ml MM BID #1 bottle 01/20/18 Unknown Rx Ibuprofen [Motrin] 600 mg PO Q8H PRN #30 tablet 01/20/18 Unknown Rx Ibuprofen [Motrin] 800 mg PO Q8HR PRN #30 tablet 04/07/21 Unknown Rx buPROPion HCl [Wellbutrin Sr] 200 mg PO BID 30 Days #60 04/18/21 Unknown Rx tab.er.12h Naproxen 500 mg PO BID #20 tablet 04/24/21 Unknown Rx Chlorhexidine Gluconate [Hibiclens] 10 ml TP BID #240 liquid 05/08/21 Unknown Rx Mupirocin [Bactroban 2%] 1 applic TP TID #1 tube 05/08/21 Unknown Rx cephALEXin [Keflex] 500 mg PO Q8HR #30 cap 05/08/21 Unknown Rx ED Physical Exam - General Limitations: No Limitations General appearance: alert, in no apparent distress - Head Head exam: Present: atraumatic, normocephalic - Eye Eye exam: Present: normal appearance, PERRL, EOMI - ENT ENT exam: Present: mucous membranes moist - Neck Neck exam: Present: normal inspection - Respiratory Respiratory exam: Present: normal lung sounds bilaterally. Absent: respiratory distress - Cardiovascular Cardiovascular Exam: Present: regular rate, normal rhythm. Absent: systolic murmur, diastolic murmur, rubs, gallop - GI/Abdominal GI/Abdominal exam: Present: soft, normal bowel sounds - Rectal Rectal exam: Present: deferred - Extremities Exam Extremities exam: Present: normal inspection, tenderness, normal capillary refill - Expanded Lower Extremity Exam Left Lower Leg exam: Present: tenderness (There is an patient to the anterior lower tibia region with some surrounding swelling and some cellulitis no no discharge no pitting edema pulses 2+ capillary refills are brisk no lymphangitis. No popliteal masses no lymphadenopathy is appreciated), swelling Ankle exam: Present: normal inspection Foot/Toe exam: Present: normal inspection - Back Exam Back exam: Present: normal inspection - Neurological Exam Neurological exam: Present: alert, oriented X3 - Psychiatric Psychiatric exam: Present: normal affect, normal mood - Skin Skin exam: Present: warm, dry, intact, normal color. Absent: rash Critical care attestation.: If time is entered above; I have spent that time in minutes in the direct care of this critically ill patient, excluding procedure time. ED Disposition Clinical Impression: Leg wound, left Disposition: 01 HOME / SELF CARE / HOMELESS Is pt being admited?: No Does the pt Need Aspirin: No Condition: Stable Instructions: Wound Care, Adult, Skin Tear, Cellulitis, Adult Prescriptions: Mupirocin [Bactroban 2%] 1 applic TP TID #1 tube Chlorhexidine Gluconate [Hibiclens] 10 ml TP BID #240 liquid cephALEXin [Keflex] 500 mg PO Q8HR #30 cap Referrals: [facility] [Provider Group] - 3-5 Days
[2021-05-08 21:53] VITALS: BP 126/78
== END 2021-05-08 22:01 | disposition home or self-care (01) ==
LOC: ED 19:00
DX: S81.802A Unspecified open wound, left lower leg, initial encounter (principal); I10 Essential (primary) hypertension; F31.9 Bipolar disorder, unspecified; Z79.899 Other long term (current) drug therapy; X58.XXXA Exposure to other specified factors, initial encounter; Y93.89 Activity, other specified; Y92.89 Other specified places as the place of occurrence of the external cause; Y99.8 Other external cause status
CPT/HCPCS: 99281

== ENCOUNTER 2021-05-09 11:56 | Emergency (ER) | payer SELFPAY | END 2021-05-09 16:27 | disposition home or self-care (01) | LOC: ED 11:56 | DX: Z00.8 Encounter for other general examination (principal); Z53.21 Procedure and treatment not carried out due to patient leaving prior to being seen by health care provider ==

== ENCOUNTER 2021-05-14 01:41 | Emergency (ER) | payer SELFPAY ==
[2021-05-14 03:27] VITALS: BP 106/79
--- NOTE | 2021-05-14 06:49 | Emergency Department Report ---
- General Chief complaint: Earache Stated complaint: BILATERAL EAR PAIN,CHEST PAIN Time Seen by Provider: 05/14/21 05:24 Source: patient Mode of arrival: Ambulatory Limitations: No Limitations - History of Present Illness Initial comments: 28-year-old F [place] male was emerge department complaining of a pruritic rash to the ear hands and arms of and known reason thinks it may be secondary to a mite or some pain drugs that he had taken. I have reports scaly rash with breakage in the skin. Ports no fever, no chills no sweats no odynophagia no dysphagia complaint: rash Severity: mild Quality: aching Consistency: constant Worsens with: none Context: none Associated symptoms: denies other symptoms Treatments Prior to Arrival: none - Related Data Previous Rx's Medication Instructions Recorded Last Taken Type DOXYCYCLINE Hyclate [Vibramycin 100 mg PO Q12HR #14 capsule 07/09/16 Unknown Rx CAP] Hydroxyzine HCl [hydrOXYzine] 50 mg PO Q6HR #20 tablet 01/02/18 Unknown Rx Skin Emollient [Aquaphor] 1 gm TP BID #1 tube 01/02/18 Unknown Rx Amoxicillin/K Clav Tab [Augmentin 1 tab PO Q12HR #20 tab 01/20/18 Unknown Rx 875 mg] Chlorhexidine Mouthwash [Peridex] 15 ml MM BID #1 bottle 01/20/18 Unknown Rx Ibuprofen [Motrin] 600 mg PO Q8H PRN #30 tablet 01/20/18 Unknown Rx Ibuprofen [Motrin] 800 mg PO Q8HR PRN #30 tablet 04/07/21 Unknown Rx buPROPion HCl [Wellbutrin Sr] 200 mg PO BID 30 Days #60 04/18/21 Unknown Rx tab.er.12h Naproxen 500 mg PO BID #20 tablet 04/24/21 Unknown Rx Chlorhexidine Gluconate [Hibiclens] 10 ml TP BID #240 liquid 05/08/21 Unknown Rx Mupirocin [Bactroban 2%] 1 applic TP TID #1 tube 05/08/21 Unknown Rx cephALEXin [Keflex] 500 mg PO Q8HR #30 cap 05/08/21 Unknown Rx Mometasone Furoate [Elocon] 1 gm TP DAILY #15 oint...g. 05/14/21 Unknown Rx Mupirocin [Bactroban 2%] 15 applic TP TID #15 gm 05/14/21 Unknown Rx Sulfamethoxazole/Trimethoprim 1 each PO BID #20 tablet 05/14/21 Unknown Rx [Bactrim Ds] Allergies Allergy/AdvReac Type Severity Reaction Status Date / Time No Known Allergies Allergy Verified 05/14/21 03:27 Abscess Boil HPI - HPI Chief Complaint: Earache Stated Complaint: BILATERAL EAR PAIN,CHEST PAIN Time Seen by Provider: 05/14/21 05:24 Home Medications: Previous Rx's Medication Instructions Recorded Last Taken Type DOXYCYCLINE Hyclate [Vibramycin 100 mg PO Q12HR #14 capsule 07/09/16 Unknown Rx CAP] Hydroxyzine HCl [hydrOXYzine] 50 mg PO Q6HR #20 tablet 01/02/18 Unknown Rx Skin Emollient [Aquaphor] 1 gm TP BID #1 tube 01/02/18 Unknown Rx Amoxicillin/K Clav Tab [Augmentin 1 tab PO Q12HR #20 tab 01/20/18 Unknown Rx 875 mg] Chlorhexidine Mouthwash [Peridex] 15 ml MM BID #1 bottle 01/20/18 Unknown Rx Ibuprofen [Motrin] 600 mg PO Q8H PRN #30 tablet 01/20/18 Unknown Rx Ibuprofen [Motrin] 800 mg PO Q8HR PRN #30 tablet 04/07/21 Unknown Rx buPROPion HCl [Wellbutrin Sr] 200 mg PO BID 30 Days #60 04/18/21 Unknown Rx tab.er.12h Naproxen 500 mg PO BID #20 tablet 04/24/21 Unknown Rx Chlorhexidine Gluconate [Hibiclens] 10 ml TP BID #240 liquid 05/08/21 Unknown Rx Mupirocin [Bactroban 2%] 1 applic TP TID #1 tube 05/08/21 Unknown Rx cephALEXin [Keflex] 500 mg PO Q8HR #30 cap 05/08/21 Unknown Rx Mometasone Furoate [Elocon] 1 gm TP DAILY #15 oint...g. 05/14/21 Unknown Rx Mupirocin [Bactroban 2%] 15 applic TP TID #15 gm 05/14/21 Unknown Rx Sulfamethoxazole/Trimethoprim 1 each PO BID #20 tablet 05/14/21 Unknown Rx [Bactrim Ds] Allergies/Adverse Reactions: Allergies Allergy/AdvReac Type Severity Reaction Status Date / Time No Known Allergies Allergy Verified 05/14/21 03:27 ED Review of Systems ROS: Stated complaint: BILATERAL EAR PAIN,CHEST PAIN Other details as noted in HPI Comment: All other systems reviewed and negative ED Past Medical Hx - Past Medical History Previous Medical History?: Yes Hx Hypertension: Yes (Not taken since in [facility] 2 wks ago) Hx Pulmonary Embolism: Yes (Bipolar disoder, depression) Hx Psychiatric Treatment: Yes (Bipolar depression) - Surgical History Past Surgical History?: No - Social History Smoking Status: Never Smoker Substance Use Type: None - Medications Home Medications: Home Medications Medication Instructions Recorded Confirmed Last Taken Type DOXYCYCLINE Hyclate [Vibramycin 100 mg PO Q12HR #14 capsule 07/09/16 Unknown Rx CAP] Hydroxyzine HCl [hydrOXYzine] 50 mg PO Q6HR #20 tablet 01/02/18 Unknown Rx Skin Emollient [Aquaphor] 1 gm TP BID #1 tube 01/02/18 Unknown Rx Amoxicillin/K Clav Tab [Augmentin 1 tab PO Q12HR #20 tab 01/20/18 Unknown Rx 875 mg] Chlorhexidine Mouthwash [Peridex] 15 ml MM BID #1 bottle 01/20/18 Unknown Rx Ibuprofen [Motrin] 600 mg PO Q8H PRN #30 tablet 01/20/18 Unknown Rx Ibuprofen [Motrin] 800 mg PO Q8HR PRN #30 tablet 04/07/21 Unknown Rx buPROPion HCl [Wellbutrin Sr] 200 mg PO BID 30 Days #60 04/18/21 Unknown Rx tab.er.12h Naproxen 500 mg PO BID #20 tablet 04/24/21 Unknown Rx Chlorhexidine Gluconate [Hibiclens] 10 ml TP BID #240 liquid 05/08/21 Unknown Rx Mupirocin [Bactroban 2%] 1 applic TP TID #1 tube 05/08/21 Unknown Rx cephALEXin [Keflex] 500 mg PO Q8HR #30 cap 05/08/21 Unknown Rx Mometasone Furoate [Elocon] 1 gm TP DAILY #15 oint...g. 05/14/21 Unknown Rx Mupirocin [Bactroban 2%] 15 applic TP TID #15 gm 05/14/21 Unknown Rx Sulfamethoxazole/Trimethoprim 1 each PO BID #20 tablet 05/14/21 Unknown Rx [Bactrim Ds] ED Physical Exam - General Limitations: No Limitations General appearance: alert, in no apparent distress - Head Head exam: Present: atraumatic, normocephalic - Eye Eye exam: Present: normal appearance - ENT ENT exam: Present: mucous membranes moist, other (Scaly hyperpigmented rash to the area pinna tragal and earlobe area extending in the mastoid area some mild excoriation and some scattered pustules to the arm and hands) - Neck Neck exam: Present: normal inspection - Respiratory Respiratory exam: Present: normal lung sounds bilaterally. Absent: respiratory distress - Cardiovascular Cardiovascular Exam: Present: regular rate, normal rhythm. Absent: systolic murmur, diastolic murmur, rubs, gallop - GI/Abdominal GI/Abdominal exam: Present: soft, normal bowel sounds - Rectal Rectal exam: Present: deferred - Extremities Exam Extremities exam: Present: normal inspection - Back Exam Back exam: Present: normal inspection - Neurological Exam Neurological exam: Present: alert, oriented X3 - Psychiatric Psychiatric exam: Present: normal affect, normal mood - Skin Skin exam: Present: warm, dry, intact, normal color, rash ED Course Vital Signs 05/14/21 03:20 Temperature 97.8 F Pulse Rate 82 Respiratory 18 Rate Blood Pressure 106/79 [Left] O2 Sat by Pulse 99 Oximetry Critical care attestation.: If time is entered above; I have spent that time in minutes in the direct care of this critically ill patient, excluding procedure time. ED Disposition Clinical Impression: Rash and nonspecific skin eruption, Acute folliculitis Disposition: 01 HOME / SELF CARE / HOMELESS Is pt being admited?: No Condition: Stable Instructions: Rash, Adult, Eklk-mg-Hult, Rash, Adult Prescriptions: Sulfamethoxazole/Trimethoprim [Bactrim Ds] 1 each PO BID #20 tablet Mupirocin [Bactroban 2%] 15 applic TP TID #15 gm Mometasone Furoate [Elocon] 1 gm TP DAILY #15 oint...g. Referrals: PRIMARY CARE, [Primary Care Provider] - 3-5 Days
== END 2021-05-14 06:56 | disposition home or self-care (01) ==
LOC: ED 01:41
DX: L73.9 Follicular disorder, unspecified (principal); R21 Rash and other nonspecific skin eruption; I10 Essential (primary) hypertension; F31.9 Bipolar disorder, unspecified; Z79.899 Other long term (current) drug therapy
CPT/HCPCS: 99282

== ENCOUNTER 2021-05-22 22:29 | Emergency (ER) | payer SELFPAY ==
[2021-05-23 00:03] VITALS: BP 130/81
== END 2021-05-23 01:30 | disposition left against medical advice (07) ==
LOC: ED 22:29
DX: M54.5 Low back pain (principal); Z53.21 Procedure and treatment not carried out due to patient leaving prior to being seen by health care provider

== ENCOUNTER 2021-05-26 01:57 | Emergency (ER) | payer SELFPAY ==
[2021-05-26 04:03] VITALS: BP 120/76
--- NOTE | 2021-05-26 04:36 | Emergency Department Report ---
ED General Adult HPI - General Chief complaint: Skin Rash Stated complaint: ILLNESS Source: patient Mode of arrival: Ambulatory Limitations: No Limitations - History of Present Illness Initial comments: Patient is a 30-year-old -Finnish male with a history of hypertension, PE, bipolar disorder, anxiety and depression who presents to the ED with complaint of persistent itchy diffuse mild erythematous maculopapular ulcerated rashes on upper and lower extremities bilaterally for the last 3 months worse in the last 1 week. Patient also states that he would like to have Covid-19 vaccination in the ER. Patient denies fever, chills, nausea and vomiting, traumatic injury, heavy lifting, fall, chest pain or shortness of breath, abdominal pain, suicidal or homicidal ideations. MD Complaint: Diffuse itchy ulcerated rashes -: Gradual, month(s) (3) Location: head, upper extremity (Bilaterally), lower extremity (Bilaterally) Radiation: non-radiation, extremity (Upper and lower extremities bilaterally) Quality: burning, aching, sharp, constant, other (Itching) Consistency: constant Improves with: none Worsens with: none Associated Symptoms: denies other symptoms, rash (Painful mild erythematous ulcerated rashes on upper and lower extremities bilaterally). denies: confusion, chest pain, cough, diaphoresis, fever/chills, headaches, loss of appetite, malaise, nausea/vomiting, seizure, shortness of breath, syncope, weakness Treatments Prior to Arrival: none - Related Data Previous Rx's Medication Instructions Recorded Last Taken Type Skin Emollient [Aquaphor] 1 gm TP BID #1 tube 01/02/18 Unknown Rx Amoxicillin/K Clav Tab [Augmentin 1 tab PO Q12HR #20 tab 01/20/18 Unknown Rx 875 mg] Chlorhexidine Mouthwash [Peridex] 15 ml MM BID #1 bottle 01/20/18 Unknown Rx Ibuprofen [Motrin] 600 mg PO Q8H PRN #30 tablet 01/20/18 Unknown Rx Ibuprofen [Motrin] 800 mg PO Q8HR PRN #30 tablet 04/07/21 Unknown Rx buPROPion HCl [Wellbutrin Sr] 200 mg PO BID 30 Days #60 04/18/21 Unknown Rx tab.er.12h Naproxen 500 mg PO BID #20 tablet 04/24/21 Unknown Rx Chlorhexidine Gluconate [Hibiclens] 10 ml TP BID #240 liquid 05/08/21 Unknown Rx Mupirocin [Bactroban 2%] 1 applic TP TID #1 tube 05/08/21 Unknown Rx cephALEXin [Keflex] 500 mg PO Q8HR #30 cap 05/08/21 Unknown Rx Mometasone Furoate [Elocon] 1 gm TP DAILY #15 oint...g. 05/14/21 Unknown Rx Mupirocin [Bactroban 2%] 15 applic TP TID #15 gm 05/14/21 Unknown Rx Sulfamethoxazole/Trimethoprim 1 each PO BID #20 tablet 05/14/21 Unknown Rx [Bactrim Ds] DOXYCYCLINE Hyclate [Vibramycin 100 mg PO Q12HR #20 capsule 05/26/21 Unknown Rx CAP] Hydroxyzine HCl [hydrOXYzine] 50 mg PO Q6HR PRN #30 tablet 05/26/21 Unknown Rx Allergies Allergy/AdvReac Type Severity Reaction Status Date / Time No Known Allergies Allergy Verified 05/26/21 03:59 ED Review of Systems ROS: Stated complaint: ILLNESS Other details as noted in HPI Constitutional: denies: chills, fever Eyes: denies: eye pain, eye discharge, vision change ENT: denies: ear pain, throat pain Respiratory: denies: cough, shortness of breath, wheezing Cardiovascular: denies: chest pain, palpitations Endocrine: no symptoms reported Gastrointestinal: denies: abdominal pain, nausea, vomiting, diarrhea Genitourinary: denies: urgency, dysuria Musculoskeletal: denies: back pain, joint swelling, arthralgia Skin: rash (Mild erythematous maculopapular ulcerated itchy painful rashes on upper and lower extremities bilaterally), change in color, pruritus. denies: lesions Neurological: denies: headache, weakness, paresthesias Psychiatric: denies: anxiety, depression Hematological/Lymphatic: denies: easy bleeding, easy bruising ED Past Medical Hx - Past Medical History Hx Hypertension: Yes Hx Pulmonary Embolism: Yes Hx Psychiatric Treatment: Yes (Bipolar depression) - Social History Smoking Status: Never Smoker Substance Use Type: None - Medications Home Medications: Home Medications Medication Instructions Recorded Confirmed Last Taken Type Skin Emollient [Aquaphor] 1 gm TP BID #1 tube 01/02/18 Unknown Rx Amoxicillin/K Clav Tab [Augmentin 1 tab PO Q12HR #20 tab 01/20/18 Unknown Rx 875 mg] Chlorhexidine Mouthwash [Peridex] 15 ml MM BID #1 bottle 01/20/18 Unknown Rx Ibuprofen [Motrin] 600 mg PO Q8H PRN #30 tablet 01/20/18 Unknown Rx Ibuprofen [Motrin] 800 mg PO Q8HR PRN #30 tablet 04/07/21 Unknown Rx buPROPion HCl [Wellbutrin Sr] 200 mg PO BID 30 Days #60 04/18/21 Unknown Rx tab.er.12h Naproxen 500 mg PO BID #20 tablet 04/24/21 Unknown Rx Chlorhexidine Gluconate [Hibiclens] 10 ml TP BID #240 liquid 05/08/21 Unknown Rx Mupirocin [Bactroban 2%] 1 applic TP TID #1 tube 05/08/21 Unknown Rx cephALEXin [Keflex] 500 mg PO Q8HR #30 cap 05/08/21 Unknown Rx Mometasone Furoate [Elocon] 1 gm TP DAILY #15 oint...g. 05/14/21 Unknown Rx Mupirocin [Bactroban 2%] 15 applic TP TID #15 gm 05/14/21 Unknown Rx Sulfamethoxazole/Trimethoprim 1 each PO BID #20 tablet 05/14/21 Unknown Rx [Bactrim Ds] DOXYCYCLINE Hyclate [Vibramycin 100 mg PO Q12HR #20 capsule 05/26/21 Unknown Rx CAP] Hydroxyzine HCl [hydrOXYzine] 50 mg PO Q6HR PRN #30 tablet 05/26/21 Unknown Rx ED Physical Exam - General Limitations: No Limitations General appearance: alert, in no apparent distress - Head Head exam: Present: atraumatic, normocephalic, normal inspection - Eye Eye exam: Present: normal appearance, PERRL, EOMI Pupils: Present: normal accommodation - ENT ENT exam: Present: normal exam, normal orophraynx, mucous membranes moist, TM's normal bilaterally, normal external ear exam - Neck Neck exam: Present: normal inspection, full ROM - Respiratory Respiratory exam: Present: normal lung sounds bilaterally. Absent: respiratory distress, wheezes, rales, rhonchi, chest wall tenderness, accessory muscle use, decreased breath sounds, prolonged expiratory - Cardiovascular Cardiovascular Exam: Present: regular rate, normal rhythm, normal heart sounds. Absent: systolic murmur, diastolic murmur, rubs, gallop - GI/Abdominal GI/Abdominal exam: Present: soft, normal bowel sounds. Absent: tenderness, guarding, hyperactive bowel sounds, hypoactive bowel sounds, organomegaly - Extremities Exam Extremities exam: Present: normal inspection, full ROM, normal capillary refill - Back Exam Back exam: Present: normal inspection, full ROM. Absent: tenderness, CVA tenderness (R), CVA tenderness (L), muscle spasm, paraspinal tenderness, vertebral tenderness - Neurological Exam Neurological exam: Present: alert, oriented X3, CN II-XII intact, normal gait, reflexes normal - Psychiatric Psychiatric exam: Present: normal mood, anxious, flat affect - Skin Skin exam: Present: warm, dry, intact, normal color, rash (Mild erythematous ulcerated maculopapular rashes on upper and lower extremities bilaterally) ED Course Vital Signs 05/26/21 04:03 Pulse Rate 98 H Blood Pressure 120/76 [Right] O2 Sat by Pulse 95 Oximetry ED Medical Decision Making - Medical Decision Making This is a 30-year-old -Finnish male with a history of bipolar disorder, anxiety and depression who presents to the ED with complaint of persistent itchy diffuse mild erythematous maculopapular ulcerated rashes on upper and lower extremities bilaterally for the last 3 months worse in the last 1 week. In the ED, patient is alert and oriented x3 and is not in any distress. Patient was discharged home on medications and advised to follow-up with his primary care physician in 7 to 10 days for reevaluation. Patient is advised return to the ED immediately if symptoms get worse. - Differential Diagnosis Folliculitis; cellulitis; abscess; insect bite; Critical care attestation.: If time is entered above; I have spent that time in minutes in the direct care of this critically ill patient, excluding procedure time. ED Disposition Clinical Impression: Acute folliculitis, Rash and other nonspecific skin eruption, Itching with irritation Disposition: 01 HOME / SELF CARE / HOMELESS Is pt being admited?: No Does the pt Need Aspirin: No Condition: Stable Instructions: Rash, Adult, [id number], Folliculitis Additional Instructions: Take medications as advised with food, drink plenty of fluids, apply the topical medication on the affected areas as advised as well. Follow-up with your primary care physician in 7 to 10 days for reevaluation. Return to the ED immediately if symptoms get worse. Prescriptions: Hydroxyzine HCl [hydrOXYzine] 50 mg PO Q6HR PRN #30 tablet PRN Reason: Itching DOXYCYCLINE Hyclate [Vibramycin CAP] 100 mg PO Q12HR #20 capsule Referrals: [facility] [Provider Group] - 7-10 days Time of Disposition: 04:38 Print Language: SRI LANKAN
== END 2021-05-26 05:30 | disposition home or self-care (01) ==
LOC: ED 01:57
DX: L73.9 Follicular disorder, unspecified (principal); F31.9 Bipolar disorder, unspecified; F41.9 Anxiety disorder, unspecified; I10 Essential (primary) hypertension; Z79.899 Other long term (current) drug therapy
CPT/HCPCS: 99282

== ENCOUNTER 2021-08-04 00:42 | Emergency (ER) | payer SELFPAY ==
[2021-08-04] MEDS ORDERED: IBUPROFEN 400 MG TAB PO ONE (03:25)
[2021-08-04] MEDS ORDERED: GABAPENTIN 100 MG CAP PO ONE (03:25)
--- NOTE | 2021-08-04 03:25 | Emergency Department Report ---
Upper Extremity - HPI Chief Complaint: Chest Pain Stated Complaint: CHEST AND NERVE PAIN Time Seen by Provider: 08/04/21 03:15 Upper Extremity: Right Arm Occurred When: >5 Days Severity: mild Symptoms: Yes Pain with Movement, No Deformity, No Limited Range of Movement, No Numbness, No Weakness, No Swelling, No Bruising/Ecchymosis, No Laceration or Abrasion Other History: CC: "I need nerve pain for my arm.". HPI: This is a 31-year-old male with history of hypertension, pulmonary embolism, bipolar disorder, anxiety depression who presents with right arm pain. He stated that 2 years ago he took relief from fracture right arm. Consequently he has persistent right arm pain. He did mention to triage nurse that he had chest pain. He denies chest pain currently. ED Review of Systems ROS: Stated complaint: CHEST AND NERVE PAIN Other details as noted in HPI Comment: Unobtainable due to pts medical conditions Constitutional: denies: chills, fever, malaise Respiratory: denies: cough, shortness of breath Cardiovascular: chest pain Skin: denies: rash, lesions ED Past Medical Hx - Past Medical History Previous Medical History?: Yes Hx Hypertension: Yes Hx Pulmonary Embolism: Yes Hx Psychiatric Treatment: Yes (Bipolar depression) - Surgical History Past Surgical History?: No - Social History Smoking Status: Never Smoker Substance Use Type: None - Medications Home Medications: Home Medications Medication Instructions Recorded Confirmed Last Taken Type Skin Emollient [Aquaphor] 1 gm TP BID #1 tube 01/02/18 Unknown Rx Amoxicillin/K Clav Tab [Augmentin 1 tab PO Q12HR #20 tab 01/20/18 Unknown Rx 875 mg] Chlorhexidine Mouthwash [Peridex] 15 ml MM BID #1 bottle 01/20/18 Unknown Rx Ibuprofen [Motrin] 600 mg PO Q8H PRN #30 tablet 01/20/18 Unknown Rx Ibuprofen [Motrin] 800 mg PO Q8HR PRN #30 tablet 04/07/21 Unknown Rx buPROPion HCl [Wellbutrin Sr] 200 mg PO BID 30 Days #60 04/18/21 Unknown Rx tab.er.12h Naproxen 500 mg PO BID #20 tablet 04/24/21 Unknown Rx Chlorhexidine Gluconate [Hibiclens] 10 ml TP BID #240 liquid 05/08/21 Unknown Rx Mupirocin [Bactroban 2%] 1 applic TP TID #1 tube 05/08/21 Unknown Rx cephALEXin [Keflex] 500 mg PO Q8HR #30 cap 05/08/21 Unknown Rx Mometasone Furoate [Elocon] 1 gm TP DAILY #15 oint...g. 05/14/21 Unknown Rx Mupirocin [Bactroban 2%] 15 applic TP TID #15 gm 05/14/21 Unknown Rx Sulfamethoxazole/Trimethoprim 1 each PO BID #20 tablet 05/14/21 Unknown Rx [Bactrim Ds] DOXYCYCLINE Hyclate [Vibramycin 100 mg PO Q12HR #20 capsule 05/26/21 Unknown Rx CAP] Hydroxyzine HCl [hydrOXYzine] 50 mg PO Q6HR PRN #30 tablet 05/26/21 Unknown Rx Mupirocin [Bactroban 2% OINT] 1 applic TP TID #1 tube 05/26/21 Unknown Rx Upper Extremity Exam - Exam General: Vital signs noted. No distress. Alert and acting appropriately. Head and Torso: No HEENT Abnormality, No Neck Tenderness, No Chest/Lungs Abnormality, No Abdominal Tenderness, No Back Tenderness Shoulder Exam: Yes Normal Range of Motion in Shoulder, No Shoulder Tenderness, No Clavicle Tenderness, No Shoulder Deformity, No AC Joint Tenderness Arm Exam: No Arm/Humerus Tenderness, No Arm Deformity Elbow: Yes Normal Range of Motion in Elbow, No Elbow Tenderness, No Elbow Deformity Forearm: No Forearm Tenderness, No Forearm Deformity, No Pain with Pronation, No Pain with Supination Wrist: Yes Normal ROM in Wrist, No Wrist Tenderness, No Wrist Deformity, No Snuffbox Tenderness, No Pain with Axial Thumb Compression Hand: Yes Normal ROM in Digit(s), No Hand Tenderness, No Hand Deformity, No Digit Tenderness, No Digit(s) Deformity, No Tendon Dysfunction CMS Exam: Yes Normal Distal Pulses, Yes Normal Capillary Refill, Yes Normal Distal Sensation, No Broken Skin ED Course Vital Signs 08/04/21 00:43 Temperature 98 F Pulse Rate 83 Respiratory 18 Rate Blood Pressure 133/94 [Left] O2 Sat by Pulse 98 Oximetry ED Medical Decision Making - EKG Data -: EKG Interpreted by Nj EKG shows normal: sinus rhythm, axis Rate: normal - EKG Data 08/04/21 03:24 EKG obtained 313 EKG interpreted by me Rate 85 bpm normal axis normal intervals no ST elevation nonischemic T wave pattern - Medical Decision Making Chronic pain right arm likely RSD, given 1 dose gabapentin ibuprofen emergency department referred to orthopedic surgeon. No indication of acute coronary syndrome pulmonary embolism on today's exam. EKG unremarkable. Critical care attestation.: If time is entered above; I have spent that time in minutes in the direct care of this critically ill patient, excluding procedure time. ED Disposition Clinical Impression: Neuropathy Disposition: 01 HOME / SELF CARE / HOMELESS Is pt being admited?: No Does the pt Need Aspirin: No Condition: Stable Instructions: Neuropathic Pain Referrals: TYLOR MARTINEZ MD [Staff Physician] - as needed
[2021-08-04 03:52] VITALS: BP 161/100
--- NOTE | 2021-08-05 08:40 | Electrocardiograph Report ---
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
== END 2021-08-04 03:51 | disposition home or self-care (01) ==
LOC: ED 00:42
DX: G62.9 Polyneuropathy, unspecified (principal); I10 Essential (primary) hypertension; F31.9 Bipolar disorder, unspecified
CPT/HCPCS: 93005; 99282

== ENCOUNTER 2021-08-06 20:38 | Emergency (ER) | payer SELFPAY ==
[2021-08-06] MEDS ORDERED: IBUPROFEN 800 MG TAB PO ONE (21:13)
--- NOTE | 2021-08-06 21:20 | Emergency Department Report ---
ED General Adult HPI - General Chief complaint: Back Pain/Injury Stated complaint: BACK PAIN Time Seen by Provider: 08/06/21 21:01 Source: patient Mode of arrival: Ambulatory Limitations: No Limitations - History of Present Illness Initial comments: Patient 31-year-old male who presents for neck pain and swelling posterior cervical x1 week. States swelling getting bigger with knot developing over the past week. There is no fevers no chills no drainage no erythema. Patient denies fall injury or trauma however. There is no dizziness no lightheadedness no nausea no vomiting.4/10 pain is exacerbated by movement and palpation. Pain is relieved by nothing tried. Severity scale (0 -10): 10 - Related Data Previous Rx's Medication Instructions Recorded Last Taken Type Skin Emollient [Aquaphor] 1 gm TP BID #1 tube 01/02/18 Unknown Rx Amoxicillin/K Clav Tab [Augmentin 1 tab PO Q12HR #20 tab 01/20/18 Unknown Rx 875 mg] Chlorhexidine Mouthwash [Peridex] 15 ml MM BID #1 bottle 01/20/18 Unknown Rx Ibuprofen [Motrin] 600 mg PO Q8H PRN #30 tablet 01/20/18 Unknown Rx Ibuprofen [Motrin] 800 mg PO Q8HR PRN #30 tablet 04/07/21 Unknown Rx buPROPion HCl [Wellbutrin Sr] 200 mg PO BID 30 Days #60 04/18/21 Unknown Rx tab.er.12h Naproxen 500 mg PO BID #20 tablet 04/24/21 Unknown Rx Chlorhexidine Gluconate [Hibiclens] 10 ml TP BID #240 liquid 05/08/21 Unknown Rx Mupirocin [Bactroban 2%] 1 applic TP TID #1 tube 05/08/21 Unknown Rx cephALEXin [Keflex] 500 mg PO Q8HR #30 cap 05/08/21 Unknown Rx Mometasone Furoate [Elocon] 1 gm TP DAILY #15 oint...g. 05/14/21 Unknown Rx Mupirocin [Bactroban 2%] 15 applic TP TID #15 gm 05/14/21 Unknown Rx Sulfamethoxazole/Trimethoprim 1 each PO BID #20 tablet 05/14/21 Unknown Rx [Bactrim Ds] DOXYCYCLINE Hyclate [Vibramycin 100 mg PO Q12HR #20 capsule 05/26/21 Unknown Rx CAP] Hydroxyzine HCl [hydrOXYzine] 50 mg PO Q6HR PRN #30 tablet 05/26/21 Unknown Rx Mupirocin [Bactroban 2% OINT] 1 applic TP TID #1 tube 05/26/21 Unknown Rx Ibuprofen [Motrin 800 MG tab] 800 mg PO Q8HR PRN #30 tablet 08/06/21 Unknown Rx Allergies Allergy/AdvReac Type Severity Reaction Status Date / Time No Known Allergies Allergy Verified 08/04/21 01:33 ED Review of Systems ROS: Stated complaint: BACK PAIN Other details as noted in HPI Constitutional: denies: chills, fever Eyes: denies: eye pain, eye discharge, vision change ENT: denies: ear pain, throat pain Respiratory: denies: cough, shortness of breath, wheezing Cardiovascular: denies: chest pain, palpitations Endocrine: no symptoms reported Gastrointestinal: denies: abdominal pain, nausea, diarrhea Genitourinary: denies: urgency, dysuria Musculoskeletal: other (neck pain and swelling ) Skin: denies: rash, lesions Neurological: denies: headache, weakness, paresthesias Psychiatric: denies: anxiety, depression Hematological/Lymphatic: denies: easy bleeding, easy bruising ED Past Medical Hx - Past Medical History Previous Medical History?: Yes Hx Hypertension: Yes Hx Pulmonary Embolism: Yes Hx Psychiatric Treatment: Yes (Bipolar depression) - Surgical History Past Surgical History?: No - Social History Smoking Status: Never Smoker Substance Use Type: None - Medications Home Medications: Home Medications Medication Instructions Recorded Confirmed Last Taken Type Skin Emollient [Aquaphor] 1 gm TP BID #1 tube 01/02/18 Unknown Rx Amoxicillin/K Clav Tab [Augmentin 1 tab PO Q12HR #20 tab 01/20/18 Unknown Rx 875 mg] Chlorhexidine Mouthwash [Peridex] 15 ml MM BID #1 bottle 01/20/18 Unknown Rx Ibuprofen [Motrin] 600 mg PO Q8H PRN #30 tablet 01/20/18 Unknown Rx Ibuprofen [Motrin] 800 mg PO Q8HR PRN #30 tablet 04/07/21 Unknown Rx buPROPion HCl [Wellbutrin Sr] 200 mg PO BID 30 Days #60 04/18/21 Unknown Rx tab.er.12h Naproxen 500 mg PO BID #20 tablet 04/24/21 Unknown Rx Chlorhexidine Gluconate [Hibiclens] 10 ml TP BID #240 liquid 05/08/21 Unknown Rx Mupirocin [Bactroban 2%] 1 applic TP TID #1 tube 05/08/21 Unknown Rx cephALEXin [Keflex] 500 mg PO Q8HR #30 cap 05/08/21 Unknown Rx Mometasone Furoate [Elocon] 1 gm TP DAILY #15 oint...g. 05/14/21 Unknown Rx Mupirocin [Bactroban 2%] 15 applic TP TID #15 gm 05/14/21 Unknown Rx Sulfamethoxazole/Trimethoprim 1 each PO BID #20 tablet 05/14/21 Unknown Rx [Bactrim Ds] DOXYCYCLINE Hyclate [Vibramycin 100 mg PO Q12HR #20 capsule 05/26/21 Unknown Rx CAP] Hydroxyzine HCl [hydrOXYzine] 50 mg PO Q6HR PRN #30 tablet 05/26/21 Unknown Rx Mupirocin [Bactroban 2% OINT] 1 applic TP TID #1 tube 05/26/21 Unknown Rx Ibuprofen [Motrin 800 MG tab] 800 mg PO Q8HR PRN #30 tablet 08/06/21 Unknown Rx ED Physical Exam - General Limitations: No Limitations General appearance: alert, in no apparent distress - Head Head exam: Present: normocephalic, normal inspection - Eye Eye exam: Present: PERRL, EOMI Pupils: Present: normal accommodation - ENT ENT exam: Present: mucous membranes moist - Neck Neck exam: Present: tenderness (Mild paraspinal tenderness. No posterior vertebral point tenderness. Range of motion remains intact and unrestricted there is no crepitus no erythema no step-off there is noted posterior cervical lymph. No fluctuant mass.), full ROM. Absent: meningismus, lymphadenopathy, thyromegaly - Expanded Neck Exam Expanded Neck exam: Present: tenderness (As above). Absent: midline deformity, anterior neck swelling, thyroid mass, carotid bruit, tracheal deviation - Respiratory Respiratory exam: Present: normal lung sounds bilaterally. Absent: respiratory distress, wheezes, stridor, chest wall tenderness - Cardiovascular Cardiovascular Exam: Present: regular rate, normal rhythm, normal heart sounds. Absent: systolic murmur, diastolic murmur, rubs, gallop - GI/Abdominal GI/Abdominal exam: Present: soft, normal bowel sounds. Absent: distended, tenderness, bruit, hernia - Rectal Rectal exam: Present: deferred - Extremities Exam Extremities exam: Present: normal inspection, full ROM. Absent: tenderness - Back Exam Back exam: Present: normal inspection, full ROM. Absent: tenderness - Neurological Exam Neurological exam: Present: alert, oriented X3, CN II-XII intact, normal gait - Expanded Neurological Exam Expanded Patient oriented to: Present: person, place, time Best Eye Response ([place]): (4) open spontaneously Best Motor Response ([place]): (6) obeys commands Best Verbal Response ([place]): (5) oriented [place] Total: 15 - Psychiatric Psychiatric exam: Present: normal affect, normal mood - Skin Skin exam: Present: warm, dry, intact, normal color. Absent: rash ED Course Vital Signs 08/06/21 08/06/21 20:44 21:36 Temperature 98.1 F Pulse Rate 88 Respiratory 18 18 Rate Blood Pressure 130/84 [Right] O2 Sat by Pulse 99 Oximetry ED Medical Decision Making - Radiology Data Radiology results: image reviewed No fracture no soft tissue abnormality. - Medical Decision Making C-spine x-ray is normal no soft tissue abnormality no fracture noted. Physical exam mild lymph no erythema no fluctuance. Plan NSAIDs, moist heat therapy, follow-up primary care doctor in 2 to 3 days. Return to emergency if symptoms worsen. Patient verbalizes agreement and understanding with discharge plan. Patient will be DC'd home in stable condition at this time. Critical care attestation.: If time is entered above; I have spent that time in minutes in the direct care of this critically ill patient, excluding procedure time. ED Disposition Clinical Impression: Neck pain, Musculoskeletal pain Disposition: HOME / SELF CARE / HOMELESS Is pt being admited?: No Does the pt Need Aspirin: No Condition: Stable Instructions: Musculoskeletal Pain, Neck Exercises Additional Instructions: Use moist heat therapy to back of neck. Medications as prescribed. Follow-up with your doctor in 2 to 3 days. Return to emergency department should symptoms worsen. Prescriptions: Ibuprofen [Motrin 800 MG tab] 800 mg PO Q8HR PRN #30 tablet PRN Reason: pain Referrals: PASTORA MICHAUD MD [Staff Physician] - 3-5 Days Forms: Work/School Release Form(ED) Time of Disposition: 21:41
--- NOTE | 2021-08-06 21:42 | XRay Report ---
Cervical spine, 3 views HISTORY: Back and neck swelling and pain COMPARISON: None FINDINGS: Alignment is normal. Vertebral body heights and disc spaces are maintained. No evidence of fracture. Prevertebral soft tissues are within normal limits. Visualized lungs are clear. Signer Name: Atif Yoo MD Signed: 08/06/2021 9:37 PM Workstation Name: [id number]
[2021-08-06 23:30] VITALS: BP 122/76
== END 2021-08-06 23:31 | disposition home or self-care (01) ==
LOC: ED 20:38
DX: M54.2 Cervicalgia (principal); M79.18 Myalgia, other site; I10 Essential (primary) hypertension
CPT/HCPCS: 72040; 99283

== ENCOUNTER 2021-08-08 00:37 | Emergency (ER) | payer SELFPAY ==
[2021-08-08] MEDS ORDERED: LIDOCAINE VISCOUS 2% 15 ML ORAL LIQD PO ONE (01:08)
[2021-08-08] MEDS ORDERED: IBUPROFEN 600 MG TAB PO ONE (01:08)
[2021-08-08] MEDS ORDERED: predniSONE 20 MG TAB PO ONE (01:39)
--- NOTE | 2021-08-08 01:44 | Emergency Department Report ---
ED Extremity Problem HPI - General Chief complaint: Extremity Injury, Upper Stated complaint: HIGH BP Source: patient Limitations: No Limitations - History of Present Illness Initial comments: Patient is a 31-year-old -[place] male with no past medical history except chronic right elbow pain from a previous injury who presents to the ED with complaint of acute exacerbation of his chronic right elbow pain for the last 6 months, worse in the last 3 days after heavy lifting at work. Patient states that he is unable to perform any active range of motion of the right arm because of worsening right elbow pain. Patient denies fall, traumatic injury, nausea, vomiting, chest pain or shortness of breath, neck pain, abdominal pain, dizziness, numbness and tingling or weakness of right arm or right wrist. MD Complaint: extremity pain (right elbow pain, chronic), joint paint (right elbow) -: Gradual, month(s) (6) Location: right, upper extremity (Right elbow pain, previous injury), elbow (Right elbow) History of Same: Yes (Chronic right elbow pain from previous injury) -: Yes arthralgia, No associated chest pain Radiation: none Severity scale (0 -10): 7 Quality: aching, sharp Consistency: constant Improves with: nothing Worsens with: weight bearing, walking, exertion, palpation Associated Symptoms: denies other symptoms, arthralgias (Right elbow pain). denies: chest pain, shortness of breath, myalgias - Related Data Previous Rx's Medication Instructions Recorded Last Taken Type Skin Emollient [Aquaphor] 1 gm TP BID #1 tube 01/02/18 Unknown Rx Amoxicillin/K Clav Tab [Augmentin 1 tab PO Q12HR #20 tab 01/20/18 Unknown Rx 875 mg] Chlorhexidine Mouthwash [Peridex] 15 ml MM BID #1 bottle 01/20/18 Unknown Rx Ibuprofen [Motrin] 600 mg PO Q8H PRN #30 tablet 01/20/18 Unknown Rx Ibuprofen [Motrin] 800 mg PO Q8HR PRN #30 tablet 04/07/21 Unknown Rx buPROPion HCl [Wellbutrin Sr] 200 mg PO BID 30 Days #60 04/18/21 Unknown Rx tab.er.12h Naproxen 500 mg PO BID #20 tablet 04/24/21 Unknown Rx Chlorhexidine Gluconate [Hibiclens] 10 ml TP BID #240 liquid 05/08/21 Unknown Rx Mupirocin [Bactroban 2%] 1 applic TP TID #1 tube 05/08/21 Unknown Rx cephALEXin [Keflex] 500 mg PO Q8HR #30 cap 05/08/21 Unknown Rx Mometasone Furoate [Elocon] 1 gm TP DAILY #15 oint...g. 05/14/21 Unknown Rx Mupirocin [Bactroban 2%] 15 applic TP TID #15 gm 05/14/21 Unknown Rx Sulfamethoxazole/Trimethoprim 1 each PO BID #20 tablet 05/14/21 Unknown Rx [Bactrim Ds] DOXYCYCLINE Hyclate [Vibramycin 100 mg PO Q12HR #20 capsule 05/26/21 Unknown Rx CAP] Hydroxyzine HCl [hydrOXYzine] 50 mg PO Q6HR PRN #30 tablet 05/26/21 Unknown Rx Mupirocin [Bactroban 2% OINT] 1 applic TP TID #1 tube 05/26/21 Unknown Rx Ibuprofen [Motrin 800 MG tab] 800 mg PO Q8HR PRN #30 tablet 08/06/21 Unknown Rx Naproxen Sodium [Naproxen Sodium 550 mg PO Q12H PRN #30 tablet 08/08/21 Unknown Rx 550mg] predniSONE [Deltasone] 20 mg PO QDAY #60 tab 08/08/21 Unknown Rx Allergies Allergy/AdvReac Type Severity Reaction Status Date / Time No Known Allergies Allergy Verified 08/04/21 01:33 ED Review of Systems ROS: Stated complaint: HIGH BP Other details as noted in HPI Constitutional: denies: chills, fever Eyes: denies: eye pain, eye discharge, vision change ENT: denies: ear pain, throat pain Respiratory: denies: cough, shortness of breath, wheezing Cardiovascular: denies: chest pain, palpitations Endocrine: no symptoms reported Gastrointestinal: denies: abdominal pain, nausea, diarrhea Genitourinary: denies: urgency, dysuria Musculoskeletal: arthralgia (Right elbow pain). denies: back pain, joint swelling Skin: denies: rash, lesions Neurological: denies: headache, weakness, paresthesias Psychiatric: denies: anxiety, depression Hematological/Lymphatic: denies: easy bleeding, easy bruising ED Past Medical Hx - Past Medical History Hx Hypertension: Yes Hx Pulmonary Embolism: Yes Hx Psychiatric Treatment: Yes (Bipolar depression) - Social History Smoking Status: Never Smoker Substance Use Type: None - Medications Home Medications: Home Medications Medication Instructions Recorded Confirmed Last Taken Type Skin Emollient [Aquaphor] 1 gm TP BID #1 tube 01/02/18 Unknown Rx Amoxicillin/K Clav Tab [Augmentin 1 tab PO Q12HR #20 tab 01/20/18 Unknown Rx 875 mg] Chlorhexidine Mouthwash [Peridex] 15 ml MM BID #1 bottle 01/20/18 Unknown Rx Ibuprofen [Motrin] 600 mg PO Q8H PRN #30 tablet 01/20/18 Unknown Rx Ibuprofen [Motrin] 800 mg PO Q8HR PRN #30 tablet 04/07/21 Unknown Rx buPROPion HCl [Wellbutrin Sr] 200 mg PO BID 30 Days #60 04/18/21 Unknown Rx tab.er.12h Naproxen 500 mg PO BID #20 tablet 04/24/21 Unknown Rx Chlorhexidine Gluconate [Hibiclens] 10 ml TP BID #240 liquid 05/08/21 Unknown Rx Mupirocin [Bactroban 2%] 1 applic TP TID #1 tube 05/08/21 Unknown Rx cephALEXin [Keflex] 500 mg PO Q8HR #30 cap 05/08/21 Unknown Rx Mometasone Furoate [Elocon] 1 gm TP DAILY #15 oint...g. 05/14/21 Unknown Rx Mupirocin [Bactroban 2%] 15 applic TP TID #15 gm 05/14/21 Unknown Rx Sulfamethoxazole/Trimethoprim 1 each PO BID #20 tablet 05/14/21 Unknown Rx [Bactrim Ds] DOXYCYCLINE Hyclate [Vibramycin 100 mg PO Q12HR #20 capsule 05/26/21 Unknown Rx CAP] Hydroxyzine HCl [hydrOXYzine] 50 mg PO Q6HR PRN #30 tablet 05/26/21 Unknown Rx Mupirocin [Bactroban 2% OINT] 1 applic TP TID #1 tube 05/26/21 Unknown Rx Ibuprofen [Motrin 800 MG tab] 800 mg PO Q8HR PRN #30 tablet 08/06/21 Unknown Rx Naproxen Sodium [Naproxen Sodium 550 mg PO Q12H PRN #30 tablet 08/08/21 Unknown Rx 550mg] predniSONE [Deltasone] 20 mg PO QDAY #60 tab 08/08/21 Unknown Rx ED Physical Exam - General General appearance: alert, in no apparent distress - Head Head exam: Present: atraumatic, normocephalic, normal inspection - Eye Eye exam: Present: normal appearance, PERRL, EOMI Pupils: Present: normal accommodation - ENT ENT exam: Present: normal exam, normal orophraynx, mucous membranes moist, TM's normal bilaterally, normal external ear exam - Neck Neck exam: Present: normal inspection, full ROM - Respiratory Respiratory exam: Present: normal lung sounds bilaterally. Absent: respiratory distress, wheezes, rales, rhonchi, chest wall tenderness, accessory muscle use, prolonged expiratory - Cardiovascular Cardiovascular Exam: Present: regular rate, normal rhythm, normal heart sounds. Absent: systolic murmur, diastolic murmur, rubs, gallop - GI/Abdominal GI/Abdominal exam: Present: soft, normal bowel sounds. Absent: tenderness, guarding, rebound, hyperactive bowel sounds, hypoactive bowel sounds, mass - Extremities Exam Extremities exam: Present: normal inspection, tenderness (Palpable right elbow tenderness with limited range of motion due to pain), normal capillary refill. Absent: full ROM (Limited range of motion of right elbow due to pain), pedal edema, joint swelling, calf tenderness - Back Exam Back exam: Present: normal inspection, full ROM. Absent: CVA tenderness (L), muscle spasm, paraspinal tenderness, vertebral tenderness - Neurological Exam Neurological exam: Present: alert, oriented X3, CN II-XII intact, normal gait, reflexes normal - Psychiatric Psychiatric exam: Present: normal affect, normal mood - Skin Skin exam: Present: warm, dry, intact, normal color. Absent: rash ED Medical Decision Making - Medical Decision Making This is a 31-year-old -[place] male with no past medical history except chronic right elbow pain from a previous injury who presents to the ED with complaint of acute exacerbation of his chronic right elbow pain for the last 6 months, worse in the last 3 days after heavy lifting at work. Patient states that he is unable to perform any active range of motion of the right arm because of worsening right elbow pain. In the ED, patient is alert and oriented x3 and is not in any distress. Patient is hemodynamically stable. Patient was treated for pain in the ED and discharged home on pain medications. Patient's pain is possibly due to osteoarthritis from a previous injury of the right elbow 10 years ago. Patient was advised to follow-up with his primary care physician in 5 to 7 days for reevaluation or return to the ED immediately if symptoms get worse. - Differential Diagnosis Osteoarthritis; muscle strain; muscle spasm; Critical care attestation.: If time is entered above; I have spent that time in minutes in the direct care of this critically ill patient, excluding procedure time. ED Disposition Clinical Impression: Chronic osteoarthritis, Chronic pain of right elbow Disposition: 01 HOME / SELF CARE / HOMELESS Is pt being admited?: No Does the pt Need Aspirin: No Condition: Stable Instructions: Arthritis, [id number], Joint Pain, [id number] Additional Instructions: Your symptoms are likely due to chronic osteoarthritis following the chronic right elbow injury. Therefore take medications with food, drink plenty of fluids and follow-up with your primary care physician in 5 to 7 days for reevaluation or return to the ED immediately if symptoms get worse. Prescriptions: predniSONE [Deltasone] 20 mg PO QDAY #60 tab Naproxen Sodium [Naproxen Sodium 550mg] 550 mg PO Q12H PRN #30 tablet PRN Reason: Severe pain Referrals: [facility] [Provider Group] - 7-10 days Forms: Work/School Release Form(ED) Time of Disposition: 01:47 Print Language: GAMBIAN
[2021-08-08 02:20] VITALS: BP 137/96
== END 2021-08-08 02:19 | disposition home or self-care (01) ==
LOC: ED 00:37
DX: M19.021 Primary osteoarthritis, right elbow (principal); I10 Essential (primary) hypertension; F31.9 Bipolar disorder, unspecified
CPT/HCPCS: 99282; J7512